=== PATIENT | male | born 1975 | race Caucasian/White ===

== ENCOUNTER 2016-10-23 15:48 | Emergency (ER) | payer SELFPAY ==
[~2016-10-23] VITALS: Ht 170.2 cm; Wt 90.5 kg
[2016-10-23 15:50] VITALS: BP 189/100; PULSE 114; RESP 20; TEMP 98.7; O2SAT 97
--- NOTE | 2016-10-23 15:57 | PD ---
Physical Exam Date Seen by Provider: Oct 23, 2016 Time Seen by Provider: 15:55 Narrative 41 yo male here for left leg swelling. Going on x 3 days. Mild pain to the left leg. 03/12. No injury. No bites or discoloration. Vitals are stable in triage. Awaiting bed placement. Data Data Last Documented VS Vital Signs Date Time Temp Pulse Resp B/P (MAP) Pulse Ox O2 Delivery O2 Flow Rate FiO2 10/23/16 15:50 98.7 114 20 189/100 (129) [address] [facility] Medical Record Reviewed: Yes Supervised Visit with EMMA: No Deangelo Sands Oct 23, 2016 15:57
--- NOTE | 2016-10-23 17:16 | PD ---
HPI Chief Complaint: Edema Time Seen by Provider: 17:10 Travel History International Travel<30 days: No Contact w/Intl Traveler<30days: No Traveled to known affect area: No History of Present Illness HPI 41-year-old male presents emergency Department with complaint of swelling to his left ankle and lower leg 3 days. Denies injury. Psychiatric the pain and cramping and is left calf last night that has subsided. The swelling to his left lower leg was worse the first day and has gone down significantly. Denies paresthesias, loss of sensation, decreased range of motion, decreased strength to the affected extremity. Denies fever, vomiting. Denies chest pain, shortness of breath. Denies history of DVT or PE. Has not taken any medications or tried any treatments to alleviate his symptoms. Symptoms are mild in severity. No known allergies. Has no other medical complaints. No other modifying factors or associated signs and symptoms. PFSH Social History Tobacco Use: No Allergies-Medications (Allergen,Severity, Reaction): Coded Allergies: No Known Allergies (Unverified , 10/23/16) Reported Meds & Prescriptions Reported Meds & Active Scripts Active Deltasone (Prednisone) 20 Mg Tab 20 Mg PO TID Indomethacin 50 Mg Cap 50 Mg PO TID Take with food, milk, or antacids to decrease stomach adverse effects. Review of Systems Except as stated in HPI: all other systems reviewed are Neg Physical Exam Narrative GENERAL: Well-nourished, well-developed male patient, in no acute distress SKIN: Warm and dry. HEAD: Atraumatic. Normocephalic. EYES: Pupils equal and round. No scleral icterus. No injection or drainage. ENT: Mucosa pink and moist. Airway patent. NECK: Trachea midline. CARDIOVASCULAR: Regular rate. RESPIRATORY: No accessory muscle use. GASTROINTESTINAL: Rounded. MUSCULOSKELETAL: Left lower extremity supple and non-tense with 2+ pedal pulse and sensory intact without erythema. Left lower leg and ankle with pitting edema. No obvious deformities. No clubbing. No cyanosis. No edema. NEUROLOGICAL: Awake and alert. Oriented 3. No obvious cranial nerve deficits. Motor grossly within normal limits. Normal speech. PSYCHIATRIC: Appropriate mood and affect; insight and judgment normal. Data Data Last Documented VS Vital Signs Date Time Temp Pulse Resp B/P (MAP) Pulse Ox O2 Delivery O2 Flow Rate FiO2 10/23/16 19:37 10/23/16 15:50 98.7 114 20 97 Room Air Orders Orders Us Leg Venous Doppler (10/23/16 ) Ankle, Complete ([id number]) (10/23/16 17:09) MDM Medical Decision Making Medical Screen Exam Complete: Yes Emergency Medical Condition: Yes Medical Record Reviewed: Yes Differential Diagnosis Superficial thrombosis, deep vein thrombosis, nonspecific leg edema Narrative Course 41-year-old male with left ankle and lower leg pitting edema 3 days. Denies injury. Denies chest pain, shortness breath. Denies history of DVT or PE. I will x-ray the left ankle and ultrasound the left leg to rule out acute process and DVT. 1845: Left ankle x-ray with no acute findings. 1899: Report given to oncoming provider at change of shift. See their note for patient disposition. Scripts Prednisone (Deltasone) 20 Mg Tab 20 MG PO TID, #15 TAB 0 Refills Prov: Kiesha Arredondo MD 10/23/16 Indomethacin (Indomethacin) 50 Mg Cap 50 MG PO TID, #30 CAP 0 Refills Take with food, milk, or antacids to decrease stomach adverse effects. Prov: Kiesha Arredondo MD 10/23/16 Olivia Joshi Oct 23, 2016 17:16
--- NOTE | 2016-10-23 17:47 | RADRPT ---
EXAM DATE/TIME: 10/23/2016 17:50 [facility] COMPARISON: No previous studies available for comparison. INDICATIONS : Left ankle pain and swelling. No known trauma. MEDICAL HISTORY : None. SURGICAL HISTORY : None. ENCOUNTER: Initial ACUITY: 2 days PAIN SCORE: 6/10 LOCATION: Left FINDINGS: Three view exam was performed of the left ankle. The bony structures are in normal alignment. No ev idence of fracture, dislocation, or soft tissue swelling. The ankle mortise is intact. No radiopaqu e foreign bodies are seen. Bony mineralization is normal. CONCLUSION: Unremarkable examination of the left ankle. Aneesh Mccann MD on October 23, 2016 at 17:45 Board Certified Radiologist. This report was verified electronically.
--- NOTE | 2016-10-23 19:15 | RADRPT ---
EXAM DATE/TIME: 10/23/2016 18:41 [facility] COMPARISON: No previous studies available for comparison. INDICATIONS : Left leg pain and swelling. MEDICAL HISTORY : Left leg pain for 3 days. Left leg swelling for 3 days. SURGICAL HISTORY : None. ENCOUNTER: Initial ACUITY: 3 days PAIN SCORE: 3/10 LOCATION: Left leg. TECHNIQUE: Venous ultrasound of the leg was performed from the inguinal ligament to the proximal calf. Real-aaron e, color Doppler and spectral tracing, compression and augmentation techniques were used. FINDINGS: There is normal compressibility of the deep venous system from the inguinal region to the proximal ca lf. No echogenic clot is seen in the lumen of the common femoral, femoral, popliteal, and posterior tibial veins. There is a normal response of the venous system to proximal and distal augmentation an d respiration. CONCLUSION: No evidence of DVT. Jamie Landry MD on October 23, 2016 at 19:13 Board Certified Radiologist. This report was verified electronically.
[2016-10-23] MEDS ORDERED: PRED-503 PO (19:32)
[2016-10-23] MEDS ORDERED: INDO50CA PO (19:32)
--- NOTE | 2016-10-23 19:34 | PD ---
Physical Exam Date Seen by Provider: Oct 23, 2016 Time Seen by Provider: 19:32 Data Data Last Documented VS Vital Signs Date Time Temp Pulse Resp B/P (MAP) Pulse Ox O2 Delivery O2 Flow Rate FiO2 10/23/16 15:50 98.7 114 20 189/100 (129) 97 Room Air Orders Orders Us Leg Venous Doppler (10/23/16 ) Ankle, Complete ([id number]) (10/23/16 17:09) MDM Medical Record Reviewed: Yes Supervised Visit with EMMA: No Interpretation(s) Last 24 hours Impressions Ankle X-Ray 10/23/16 1709 Signed Impressions: Service Date/Time: Friday, October 23, 2016 17:50 - CONCLUSION: Unremarkable examination of the left ankle. Aneesh Mccann MD Lower Extremity Ultrasound 10/23/16 0000 Signed Impressions: Service Date/Time: Friday, October 23, 2016 18:41 - CONCLUSION: No evidence of DVT. Jamie Landry MD Differential Diagnosis . Narrative Course The x-ray and ultrasound are negative. Patient's symptoms appear to be more in the ankle when in the calf or lower leg. 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 I suspect this is an inflammatory arthritis even possibly gout. The patient will be given in his own and Indocin. Diagnosis Primary Impression: inflammatory arthritis left ankle Patient Instructions: General Instructions Departure Forms: Tests/Procedures, Work Release Special Instructions: No work 3 days. Additional Instruction: Rest. Elevation. Medications as directed. Limited activity. Follow-up with a medical doctor in one week. Med/Other Pt SpecificInfo: Prescription(s) given Scripts Prednisone (Deltasone) 20 Mg Tab 20 MG PO TID, #15 TAB 0 Refills Prov: Kiesha Arredondo MD 10/23/16 Indomethacin (Indomethacin) 50 Mg Cap 50 MG PO TID, #30 CAP 0 Refills Take with food, milk, or antacids to decrease stomach adverse effects. Prov: Kiesha Arredondo MD 10/23/16 Disposition: 01 DISCHARGE HOME Condition: Stable Theo Arce Oct 23, 2016 19:34
== END 2016-10-23 19:51 | disposition home or self-care (01) ==
LOC: NEPK 15:48
DX: M13.872 Other specified arthritis, left ankle and foot (principal)
CPT/HCPCS: 73610; 93971; 99284

== ENCOUNTER 2017-02-15 16:14 | Observation (INO) | payer SELFPAY ==
[~2017-02-15] VITALS: Ht 170.2 cm; Wt 97.5 kg
[~2017-02-15 16:14] MED LIST: INDO50CA PO; PRED-503 PO
[2017-02-15 16:16] VITALS: BP 228/112; PULSE 112; RESP 18; TEMP 98.7; O2SAT 99
[2017-02-15] MEDS ORDERED: AMLO10TA2 PO (16:38)
[2017-02-15] MEDS ORDERED: SODIUM CHLORIDE 0.9% FLUSH 10 ML FLUSH IVF PRN (16:45)
--- NOTE | 2017-02-15 17:10 | PD ---
HPI Chief Complaint: Eye Problems/Injury Time Seen by Provider: 16:31 Travel History International Travel<30 days: No Contact w/Intl Traveler<30days: No Traveled to known affect area: No History of Present Illness HPI 41-year-old male presents with his boss noting blood to his eye and telling him to get it checked out. He states he's also been having intermittent chest pain and tingling to his left arm. He states he doesn't know if this is related to him being anxious but he has been having this symptom. He denies any weakness, headache, trauma or other concurrent concerns. He states that his blood pressure about a month ago was in the 150s and his doctor refilled his Norvasc 10 mg which usually controls his blood pressure. He states his blood pressure is usually not as elevated as it is right now. Quality is red. Severity is limited to eye. He denies specific modifying factors. PFSH Past Medical History Cardiovascular Problems: Yes (HTN) Diminished Hearing: No Hypertension: Yes Tetanus Vaccination: Unknown ?: Not Past Surgical History Surgical History: No Previous Surgery Social History Alcohol Use: Yes (3 OR 4 TIMES A WEEK) Tobacco Use: No Substance Use: No Allergies-Medications (Allergen,Severity, Reaction): Coded Allergies: No Known Allergies (Unverified Allergy, Unknown, 02/15/17) Reported Meds & Prescriptions Reported Meds & Active Scripts Active Review of Systems Except as stated in HPI: all other systems reviewed are Neg Physical Exam Narrative GENERAL: Well-nourished, well-developed patient. Well-appearing SKIN: Warm and dry. HEAD: Normocephalic and atraumatic. EYES: Right eye shows conjunctival hemorrhage, pupils equal, extraocular movement intact ENT: No nasal drainage noted. NECK: Supple, trachea midline. CARDIOVASCULAR: Regular rate and rhythm RESPIRATORY: Breath sounds equal bilaterally. No accessory muscle use. GASTROINTESTINAL: Abdomen nondistended. EXTREMITIES: No edema. NEUROLOGICAL: Awake and alert. Motor and sensory grossly within normal limits. Normal speech. Data Data Last Documented VS Vital Signs Date Time Temp Pulse Resp B/P (MAP) Pulse Ox O2 Delivery O2 Flow Rate FiO2 02/15/17 16:16 98.7 112 18 228/112 (150) 99 Orders Orders Electrocardiogram (02/15/17 16:44) Ckmb (Isoenzyme) Profile (02/15/17 16:44) Complete Blood Count With Diff (02/15/17 16:44) Comprehensive Metabolic Panel (02/15/17 16:44) Magnesium (Mg) (02/15/17 16:44) Prothrombin Time / Inr (Pt) (02/15/17 16:44) Act Partial Throm Time (Ptt) (02/15/17 16:44) Troponin I (02/15/17 16:44) Chest, Single Ap (02/15/17 16:44) Ecg Monitoring (02/15/17 16:44) Bilateral Bp Monitoring (02/15/17 16:44) Iv Access Insert/Monitor (02/15/17 16:44) Oximetry (02/15/17 16:44) Sodium Chloride 0.9% Flush (Ns Flush) (02/15/17 16:45) Ct Brain W/O Iv Contrast(Rout) (02/15/17 ) Nitroglycerin 2% Oint (Nitroglycerin 2% (02/15/17 17:15) CKMB (02/15/17 16:55) CKMB% (02/15/17 16:55) Aspirin (Aspirin) (02/15/17 18:30) Enalaprilat Inj (Vasotec Inj) (02/15/17 18:30) Admit Order (Ed Use Only) (02/15/17 18:41) Labs Laboratory Tests Test 02/15/17 16:55 White Blood Count 10.2 TH/MM3 Red Blood Count 5.01 MIL/MM3 Hemoglobin 15.7 GM/DL Hematocrit 45.8 % Mean Corpuscular Volume 91.5 FL Mean Corpuscular Hemoglobin 31.4 PG Mean Corpuscular Hemoglobin Concent 34.4 % Red Cell Distribution Width 12.8 % Platelet Count 299 TH/MM3 Mean Platelet Volume 7.3 FL Neutrophils (%) (Auto) 67.2 % Lymphocytes (%) (Auto) 19.0 % Monocytes (%) (Auto) 12.4 % Eosinophils (%) (Auto) 0.8 % Basophils (%) (Auto) 0.6 % Neutrophils # (Auto) 6.8 TH/MM3 Lymphocytes # (Auto) 1.9 TH/MM3 Monocytes # (Auto) 1.3 TH/MM3 Eosinophils # (Auto) 0.1 TH/MM3 Basophils # (Auto) 0.1 TH/MM3 CBC Comment DIFF FINAL Differential Comment Prothrombin Time 10.1 SEC Prothromb Time International Ratio 1.0 RATIO Activated Partial Thromboplast Time 27.9 SEC Blood Urea Nitrogen 9 MG/DL Creatinine 0.98 MG/DL Random Glucose 221 MG/DL Total Protein 7.9 GM/DL Albumin 3.9 GM/DL Calcium Level 9.2 MG/DL Magnesium Level 1.8 MG/DL Alkaline Phosphatase 86 U/L Aspartate Amino Transf (AST/SGOT) 55 U/L Alanine Aminotransferase (ALT/SGPT) 169 U/L Total Bilirubin 0.6 MG/DL Sodium Level 134 MEQ/L Potassium Level 4.0 MEQ/L Chloride Level 100 MEQ/L Carbon Dioxide Level 29.2 MEQ/L Anion Gap 5 MEQ/L Estimat Glomerular Filtration Rate 84 ML/MIN Total Creatine Kinase 231 U/L Creatine Kinase MB 1.3 NG/ML Troponin I LESS THAN 0.02 NG/ML MDM Medical Decision Making Medical Screen Exam Complete: Yes Emergency Medical Condition: Yes Medical Record Reviewed: Yes (past history confirmed) Interpretation(s) CBC & BMP Diagram 02/15/17 16:55 Total Protein 7.9, Albumin 3.9, Calcium Level 9.2, Magnesium Level 1.8, Alkaline Phosphatase 86, Aspartate Amino Transf (AST/SGOT) 55 H, Alanine Aminotransferase (ALT/SGPT) 169 H, Total Bilirubin 0.6 Last 24 hours Impressions Chest X-Ray 02/15/17 1644 Signed Impressions: Service Date/Time: Wednesday, February 15, 2017 16:53 - CONCLUSION: 1. No acute cardiopulmonary disease. Kody Power MD Differential Diagnosis Hypertensive urgency, atypical cardiac, subconjunctival hemorrhage Narrative Course Will check blood work, chest x-ray, EKG and dose with nitroglycerin and reevaluate. Hold aspirin until CT head resulted ED workup shows glucose greater than 200, patient's blood pressure remains elevated, will dose with Vasotec and admit to the hospital for further care Physician Communication Physician Communication dr milligan agrees to admit Diagnosis Primary Impression: Hypertensive urgency Additional Impressions: Chest pain Qualified Codes: R07.9 - Chest pain, unspecified Elevated glucose Admitting Information Admitting Physician Requests: Observation Scripts Diltiazem (Cardizem) 30 Mg Tab 30 MG PO QID for Blood Pressure Management, #120 TAB Prov: Keyonna Mayer 02/16/17 Metoprolol Tartrate (Metoprolol Tartrate) 25 Mg Tab 25 MG PO Q12HR for Blood Pressure Management, #60 TAB Prov: Keyonna Mayer 02/16/17 Amlodipine (Amlodipine) 10 Mg Tab 10 MG PO DAILY for Blood Pressure Management, #30 TAB 0 Refills Prov: Keyonna Mayer 02/16/17 Lashell Pathak MD Feb 15, 2017 17:10
--- NOTE | 2017-02-15 17:11 | RADRPT ---
EXAM DATE/TIME: 02/15/2017 16:53 [facility] COMPARISON: No previous studies available for comparison. INDICATIONS : Chest pain left side. MEDICAL HISTORY : Hypertension. SURGICAL HISTORY : None. ENCOUNTER: Initial ACUITY: 1 day PAIN SCORE: 3/10 LOCATION: Bilateral chest FINDINGS: A single view of the chest demonstrates the lungs to be symmetrically aerated without evidence of mas s, infiltrate or effusion. The cardiomediastinal contours are unremarkable. Osseous structures are intact. CONCLUSION: 1. No acute cardiopulmonary disease. Kody Power MD on February 15, 2017 at 17:09 Board Certified Radiologist. This report was verified electronically.
[2017-02-15] MEDS ORDERED: NITROGLYCERIN 2% OINT 1 GM PACKET TOP ONE (17:15)
[2017-02-15 17:22] LABS: AUTOMATED NEUTROPHIL # 6.8 TH/MM3 (1.8-7.7); BASOPHIL # 0.1 TH/MM3 (0-0.2); BASOPHIL % 0.6 % (0.0-2.0); EOSINOPHIL # 0.1 TH/MM3 (0-0.4); EOSINOPHIL % 0.8 % (0.0-4.0); HEMATOCRIT 45.8 % (39.0-51.0); HEMO FLAGS DIFF FINAL; LYMPHOCYTE # 1.9 TH/MM3 (1.0-4.8); MEAN CELL VOLUME 91.5 FL (80.0-100.0); MEAN CORPUSCULAR HEMOGLOBIN 31.4 PG (27.0-34.0); MEAN CORPUSCULAR HGB CONC 34.4 % (32.0-36.0); MONO % 12.4 % (0.0-8.0); NEUT % 67.2 % (16.0-70.0); PLATELET COUNT 299 TH/MM3 (150-450); RED BLOOD COUNT 5.01 MIL/MM3 (4.50-5.90); RED CELL DISTRIBUTION WIDTH 12.8 % (11.6-17.2); WHITE BLOOD COUNT 10.2 TH/MM3 (4.0-11.0)
[2017-02-15 17:46] LABS: ALT (GPT) 169 U/L (12-78); ANION GAP 5 MEQ/L (5-15); AST (GOT) 55 U/L (15-37); BICARBONATE 29.2 MEQ/L (21.0-32.0); BLOOD UREA NITROGEN 9 MG/DL (7-18); CHLORIDE 100 MEQ/L (98-107); GLOMERULAR FILTRATION RATE 84 ML/MIN (>89); MAGNESIUM 1.8 MG/DL (1.5-2.5); SODIUM (NA) 134 MEQ/L (136-145)
[2017-02-15 17:50] LABS: ALKALINE PHOSPHATASE 86 U/L (45-117); CREATINE KINASE 231 U/L (39-308); TOTAL BILIRUBIN ADULT 0.6 MG/DL (0.2-1.0)
[2017-02-15 18:01] LABS: APTT (PATIENT) 27.9 SEC (24.3-30.1); PROTHROMBIN TIME - PATIENT 10.1 SEC (9.8-11.6)
[2017-02-15 18:02] LABS: CKMB 1.3 NG/ML (0.5-3.6)
--- NOTE | 2017-02-15 18:16 | RADRPT ---
EXAM DATE/TIME: 02/15/2017 18:06 [facility] COMPARISON: No previous studies available for comparison. INDICATIONS : Headache. Hypertension. RADIATION DOSE: 53.07 CTDIvol (mGy) MEDICAL HISTORY : Cardiovascular disease. Hypertension. SURGICAL HISTORY : None. ENCOUNTER: Initial ACUITY: 1 day PAIN SCALE: 5/10 LOCATION: cranial TECHNIQUE: Multiple contiguous axial images were obtained of the head. Using automated exposure control and adj ustment of the mA and/or kV according to patient size, radiation dose was kept as low as reasonably a chievable to obtain optimal diagnostic quality images. DICOM format image data is available electro nically for review and comparison. FINDINGS: CEREBRUM: The ventricles are normal for age. No evidence of midline shift, mass lesion, hemorrhage or acute in farction. No extra-axial fluid collections are seen. POSTERIOR FOSSA: The cerebellum and brainstem are intact. The 4th ventricle is midline. The cerebellopontine angle i s unremarkable. EXTRACRANIAL: The visualized portion of the orbits is intact. Right middle turbinate shellie bullosa. SKULL: The calvaria is intact. No evidence of skull fracture. CONCLUSION: 1. No acute intracranial abnormality. Kody Power MD on February 15, 2017 at 18:13 Board Certified Radiologist. This report was verified electronically.
[2017-02-15] MEDS ORDERED: ASPIRIN 325 MG TAB PO ONE (18:30)
[2017-02-15] MEDS ORDERED: ENALAPRILAT 1.25 MG/ML VIAL IV PUSH ONE (18:30)
[2017-02-15 18:43] VITALS: BP 188/99; PULSE 94; RESP 16; O2SAT 97
[2017-02-15] MEDS ORDERED: NALOXONE HCL 0.4 MG/ML AMP IV PUSH PRN (18:45)
[2017-02-15] MEDS ORDERED: SENNOSIDES 8.6 MG TAB PO PRN (18:45)
[2017-02-15] MEDS ORDERED: MAGNESIUM HYDROXIDE SUSP 30 ML CUP PO PRN (18:45)
[2017-02-15] MEDS ORDERED: LACTULOSE SYRUP 20 GM/30 ML CUP PO PRN (18:45)
[2017-02-15] MEDS ORDERED: ACETAMINOPHEN 325 MG TAB PO PRN (18:45)
[2017-02-15] MEDS ORDERED: BISACODYL 10 MG SUPP RECTAL PRN (18:45)
[2017-02-15] MEDS ORDERED: hydrALAZINE HCL 10 MG TAB PO PRN (18:45)
[2017-02-15] MEDS ORDERED: SODIUM CHLORIDE 0.9% FLUSH 10 ML FLUSH IV FLUSH PRN (18:45)
[2017-02-15] MEDS ORDERED: ENALAPRILAT 2.5 MG/2 ML VIAL IV PUSH PRN (18:45)
--- NOTE | 2017-02-15 19:12 | HHI.HP ---
[facility] Raymond Whitlock MD Admission Diagnosis chest pain, hypertensive urgency, elevated glucose Diagnoses: (1) Chest pain (2) HTN (hypertension) Diagnosis: Principal (3) Hyperglycemia Diagnosis: Principal Travel History International Travel<30 Days: No Contact w/Intl Traveler <30 Da: No Traveled to Known Affected Are: No History of Present Illness This is a 41-year-old male with a PMH of HTN who presented to ER with complaints of right eye redness starting earlier this afternoon. Also notes c/ o intermittent chest pain for 2-3 days which he believes is associated w/ anxiety. No h/o CAD. Denies fever, chills, cough or sick contacts. On arrival , BP 228/112, HR 112, O2 sat 99% on RA, Afebrile. CBC unremarkable. Chemistry is unremarkable except for GFR. BS 221, no previous history of DM. LFTs mildly elevated. Troponin negative. Her 1.0. CXR with no acute findings. CT Head negative. States he is on Norvasc at home, reports compliance w/ medications. S/p Vasotec in ER w/ improvement. Review of Systems Except as stated in HPI: all other systems reviewed are Neg ROS: 14 point review of systems otherwise negative. Past Family Social History Past Medical History PMH: HTN Past Surgical History PAST SURGICAL HISTORY: None Allergies: Coded Allergies: No Known Allergies (Unverified Allergy, Unknown, 02/15/17) Family History PAST FAMILY HISTORY: Reviewed. No h/o DM or CAD Social History PAST SOCIAL HISTORY: Occasional alcohol. Negative for tobacco or drugs. Physical Exam Vital Signs Vital Signs Date Time Temp Pulse Resp B/P (MAP) Pulse Ox O2 Delivery O2 Flow Rate FiO2 02/15/17 18:43 94 16 188/99 (128) 97 Room Air 02/15/17 16:16 98.7 112 18 228/112 (150) 99 Physical Exam PE: GENERAL: Middle-aged male in no acute distress. HEENT: PERRLA, EOMI. Right conjunctival hemorrhage. No scleral icterus or conjunctival pallor. No lid lag or facial droop. CARDIOVASCULAR: Regular rate and rhythm. No obvious murmurs to auscultation. No chest tenderness to palpation. RESPIRATORY: No obvious rhonchi or wheezing. Clear to auscultation. Breath sounds equal bilaterally. GASTROINTESTINAL: Abdomen soft, non-tender, nondistended. BS normal. MUSCULOSKELETAL: Extremities without clubbing, cyanosis, or edema. No obvious deformities. NEUROLOGICAL: Awake, alert and oriented x4. No focal neurologic deficits. Moving both upper and lower extremities spontaneously. Laboratory Laboratory Tests Test 02/15/17 16:55 White Blood Count 10.2 Red Blood Count 5.01 Hemoglobin 15.7 Hematocrit 45.8 Mean Corpuscular Volume 91.5 Mean Corpuscular Hemoglobin 31.4 Mean Corpuscular Hemoglobin Concent 34.4 Red Cell Distribution Width 12.8 Platelet Count 299 Mean Platelet Volume 7.3 Neutrophils (%) (Auto) 67.2 Lymphocytes (%) (Auto) 19.0 Monocytes (%) (Auto) 12.4 Eosinophils (%) (Auto) 0.8 Basophils (%) (Auto) 0.6 Neutrophils # (Auto) 6.8 Lymphocytes # (Auto) 1.9 Monocytes # (Auto) 1.3 Eosinophils # (Auto) 0.1 Basophils # (Auto) 0.1 CBC Comment DIFF FINAL Differential Comment Prothrombin Time 10.1 Prothromb Time International Ratio 1.0 Activated Partial Thromboplast Time 27.9 Blood Urea Nitrogen 9 Creatinine 0.98 Random Glucose 221 Total Protein 7.9 Albumin 3.9 Calcium Level 9.2 Magnesium Level 1.8 Alkaline Phosphatase 86 Aspartate Amino Transf (AST/SGOT) 55 Alanine Aminotransferase (ALT/SGPT) 169 Total Bilirubin 0.6 Sodium Level 134 Potassium Level 4.0 Chloride Level 100 Carbon Dioxide Level 29.2 Anion Gap 5 Estimat Glomerular Filtration Rate 84 Total Creatine Kinase 231 Creatine Kinase MB 1.3 Troponin I LESS THAN 0.02 Result Diagram: 02/15/17 1655 02/15/175 Caprini VTE Risk Assessment Caprini VTE Risk Assessment: No/Low Risk (score <= 1) Caprini Risk Assessment Model Point Value = 1 Point Value = 2 Point Value = 3 Point Value = 5 Age 41-60 Minor surgery BMI > 25 kg/m2 Swollen legs Varicose veins or History of unexplained or recurrent spontaneous Oral contraceptives or hormone replacement Sepsis (< 1 month) Serious lung disease, including pneumonia (< 1 month) Abnormal pulmonary function Acute myocardial infarction Congestive heart failure (< 1 month) History of inflammatory bowel disease Medical patient at bed rest Age 61-74 Arthroscopic surgery Major open surgery (> 45 min) Laparoscopic surgery (> 45 min) Malignancy Confined to bed (> 72 hours) Immobilizing plaster cast Central venous access Age >= 75 History of VTE Family history of VTE Factor V Leiden Prothrombin [id number] Lupus anticoagulant Anticardiolipin antibodies Elevated serum homocysteine Heparin-induced thrombocytopenia Other congenital or acquired thrombophilia Stroke (< 1 month) Elective arthroplasty Hip, pelvis, or leg fracture Acute spinal cord injury (< 1 month) Prophylaxis Regimen Total Risk Factor Score Risk Level Prophylaxis Regimen 0-1 Low Early ambulation 2 Moderate Order ONE of the following: *Sequential Compression Device (SCD) *Heparin 5000 units SQ BID 3-4 Higher Order ONE of the following medications: *Heparin 5000 units SQ TID *Enoxaparin/Lovenox 40 mg SQ daily (WT < 150 kg, CrCl > 30 mL/min) *Enoxaparin/Lovenox 30 mg SQ daily (WT < 150 kg, CrCl > 10-29 mL/min) *Enoxaparin/Lovenox 30 mg SQ BID (WT < 150 kg, CrCl > 30 mL/min) AND/OR *Sequential Compression Device (SCD) 5 or more Highest Order ONE of the following medications: *Heparin 5000 units SQ TID (Preferred with Epidurals) *Enoxaparin/Lovenox 40 mg SQ daily (WT < 150 kg, CrCl > 30 mL/min) *Enoxaparin/Lovenox 30 mg SQ daily (WT < 150 kg, CrCl > 10-29 mL/min) *Enoxaparin/Lovenox 30 mg SQ BID (WT < 150 kg, CrCl > 30 mL/min) AND *Sequential Compression Device (SCD) Assessment and Plan Problem List: (1) Chest pain ICD Code: R07.9 - Chest pain, unspecified Status: Acute (2) HTN (hypertension) ICD Code: I10 - Essential (primary) hypertension (3) Hyperglycemia ICD Code: R73.9 - Hyperglycemia, unspecified Assessment and Plan A/P: 1. Chest Pain: intermittent c/o chest pain, reports related to anxiety. No h/ o CAD, low cardiac risk. Initial trop negative, EKG w/ no acute ischemia. Admit for Observation, telemetry, check serial cardiac enzymes, ASA, Statin, Metoprolol, Morphine prn. 2. HTN: Uncontrolled. On Norvasc 10mg qd, reports compliance w/ meds. BP on arrival 228/112, HR 112, s/p Vasotec in ER w/ improvement, BP currently 162/91, HR 100. Will monitor, resume home medications. Add Metoprolol. 3. Hyperglycemia: BS 221. No h/o DM. Check Hgb A1c, start Sliding Scale w/ Accu-Cheks. Diabetic Education 4. DVT Prophylaxis: SCD/Teds 5. Social work for d/c planning as needed. 6. Case discussed w/ ER physician at length. Problem Qualifiers (1) Chest pain: Qualified Codes: R07.9 - Chest pain, unspecified Danette Fink MD Feb 15, 2017 19:12
[2017-02-15] MEDS ORDERED: DEXTROSE 50% IN WATER 50 ML VIAL(D50) IV PUSH PRN (19:15)
[2017-02-15] MEDS ORDERED: GLUCAGON 1 MG/ML VIAL OTHER PRN (19:15)
[2017-02-15 19:23] VITALS: BP 162/91; PULSE 100; RESP 18; O2SAT 97
[2017-02-15] MEDS ORDERED: ENOXAPARIN SODIUM 40 MG/0.4 ML SYRINGE SQ SCH (20:00)
[2017-02-15] MEDS ORDERED: ATOR20TA15 PO (20:49)
[2017-02-15] MEDS ORDERED: ATOR10TA15 PO (20:49)
[2017-02-15 20:58] VITALS: PULSE 95
[2017-02-15] MEDS: INSULIN ASPART SUPPLEMENTAL SCALE SQ SCH (21:00)
--- NOTE | 2017-02-15 21:26 | EKG ---
Date Performed: 02/15/2017 Time Performed: 20:20:44 PTAGE: 41 years EKG: Sinus rhythm , PROBABLE LEFT ARM RIGHT ARM LEAD REVERSAL, POSSIBLE LEFT ATRIAL ENLARGEMENT, LEFT POSTERIOR FASCICU LAR BLOCK, POSSIBLE INFERIOR MYOCARDIAL INFARCTION, ABNORMAL ECG PREVIOUS TRACING : 02/15/2017 17.23 No significant change from previous tracing noted. DOCTOR: Cameron Ralph Interpretating Date/Time 02/15/2017 21:25:18
[2017-02-15 21:27] VITALS: O2SAT 97
--- NOTE | 2017-02-15 21:33 | EKG ---
Date Performed: 02/15/2017 Time Performed: 17:23:13 PTAGE: 41 years EKG: Sinus rhythm NONSPECIFIC T-WAVE ABNORMALITY BORDERLINE ECG NO PREVIOUS TRACING DOCTOR: Cameron Ralph Interpretating Date/Time 02/15/2017 21:32:02
[2017-02-16] VITALS (7 sets, daily range): BP systolic 138–169; BP diastolic 80–100; PULSE 76–100; RESP 20–22; TEMP 97.9–99; O2SAT 89–97
[2017-02-16] MEDS: SODIUM CHLORIDE 0.9% FLUSH 10 ML FLUSH IV FLUSH SCH ×2 (01:43→09:00)
[2017-02-16] MEDS: METOPROLOL TARTRATE 25 MG TAB PO SCH ×2 (01:44→08:30)
[2017-02-16] MEDS: DOCUSATE SODIUM 50 MG/SENNA 8.6 MG TAB PO SCH ×2 (01:44→08:27)
[2017-02-16] MEDS: DILTIAZEM HCL 30 MG TAB PO SCH ×3 (01:44→13:00)
[2017-02-16 02:16] LABS: AUTOMATED NEUTROPHIL # 6.6 TH/MM3 (1.8-7.7); BASOPHIL # 0.1 TH/MM3 (0-0.2); BASOPHIL % 1.1 % (0.0-2.0); EOSINOPHIL # 0.1 TH/MM3 (0-0.4); EOSINOPHIL % 0.9 % (0.0-4.0); HEMATOCRIT 44.5 % (39.0-51.0); HEMO FLAGS DIFF FINAL; LYMPH % 26.1 % (9.0-44.0); LYMPHOCYTE # 2.9 TH/MM3 (1.0-4.8); MEAN CELL VOLUME 91.4 FL (80.0-100.0); MEAN CORPUSCULAR HEMOGLOBIN 31.9 PG (27.0-34.0); MEAN CORPUSCULAR HGB CONC 34.9 % (32.0-36.0); MONO % 11.7 % (0.0-8.0); NEUT % 60.2 % (16.0-70.0); PLATELET COUNT 273 TH/MM3 (150-450); RED BLOOD COUNT 4.87 MIL/MM3 (4.50-5.90); RED CELL DISTRIBUTION WIDTH 12.7 % (11.6-17.2)
[2017-02-16 02:34] LABS: ANION GAP 6 MEQ/L (5-15); BICARBONATE 30.8 MEQ/L (21.0-32.0); BLOOD UREA NITROGEN 10 MG/DL (7-18); CHLORIDE 99 MEQ/L (98-107); GLOMERULAR FILTRATION RATE 93 ML/MIN (>89); POTASSIUM 3.6 MEQ/L (3.5-5.1); SODIUM (NA) 136 MEQ/L (136-145)
[2017-02-16] MEDS: INSULIN ASPART SUPPLEMENTAL SCALE SQ SCH ×2 (08:00→12:00)
[2017-02-16 08:51] LABS: INDIRECT BILIRUBIN 0.4 MG/DL (0.0-0.8); TOTAL BILIRUBIN ADULT 0.6 MG/DL (0.2-1.0)
[2017-02-16] MEDS ORDERED: ASPIRIN EC 81 MG TABEC PO SCH (09:00)
[2017-02-16] MEDS ORDERED: predniSONE 20 MG TAB PO SCH (09:00)
[2017-02-16] MEDS ORDERED: PNEUMOCOCCAL POLYVALENT INJ 25 MCG/0.5 ML SYR IM ONE (09:00)
[2017-02-16] MEDS ORDERED: INDOMETHACIN 50 MG CAP PO SCH (09:00)
[2017-02-16] MEDS ORDERED: PRAVASTATIN SOD 40 MG TAB PO SCH (09:00)
--- NOTE | 2017-02-16 10:43 | EKG ---
Date Performed: 02/15/2017 Time Performed: 23:54:18 PTAGE: 41 years EKG: Sinus rhythm NONSPECIFIC T-WAVE ABNORMALITY BORDERLINE ECG NO PREVIOUS TRACING DOCTOR: Cameron Ralph Interpretating Date/Time 02/16/2017 10:41:35
[2017-02-16 10:58] LABS: HEMOGLOBIN A1a 1.3 %; HEMOGLOBIN A1b 0.8 %; HEMOGLOBIN Ao 81.4 %; HEMOGLOBIN F 2.1 %; HEMOGLOBIN LA1C 2.2 %; HEMOGLOBIN P3 3.9 %
[2017-02-16] MEDS ORDERED: DILT31TA PO (12:49)
[2017-02-16] MEDS ORDERED: AMLO10TA2 PO (12:49)
[2017-02-16] MEDS ORDERED: METO25TA3 PO (12:49)
--- NOTE | 2017-02-16 12:55 | HHI.DCPOC ---
Discharge Care Plan Diagnosis: (1) Diabetes (2) Hyperglycemia (3) HTN (hypertension) (4) Conjunctival hemorrhage of right eye (5) Hypertensive urgency (6) Transaminitis (7) Chest pain Goals to Promote Your Health * To prevent worsening of your condition and complications * To maintain your health at the optimal level Directions to Meet Your Goals Recommend keeping a blood pressure log to take with you to your next PCP appointment HgbA1c 7.5, Diabetes, new diagnosis, recommend lifestyle modification, decrease or stop drinking alcohol, regular exercise program. Follow up with PCP. Hold home statin therapy for now due to elevated liver function tests Take your medications as prescribed Follow your dietary instruction Follow activity as directed Keep your appointments as scheduled Take your immunizations and boosters as scheduled If your symptoms worsen call your PCP, if no PCP go to Urgent Care Center or Emergency Room Smoking is Dangerous to Your Health. Avoid second hand smoke Call the 24-hour hour crisis hotline for domestic abuse at Keyonna Mayer Feb 16, 2017 12:55
--- NOTE | 2017-02-16 12:56 | HHI.PR ---
Subjective Remarks Follow up on patient with hypertensive urgency. Patient seen and examined. Patient is improved. Blood pressure better controlled. Patient's currently chest pain free. Patient reports long history of sharp chest pain with anxiety and he has been more anxious as of late. He denies any acute medical complaints. He is a daily drinker. Tolerating diet without any difficulties. He denies any vision disturbances. Objective Vitals Vital Signs Date Time Temp Pulse Resp B/P (MAP) Pulse Ox O2 Delivery O2 Flow Rate FiO2 02/16/17 12:14 98.8 80 20 150/80 (103) 97 02/16/17 08:26 97.9 89 20 160/80 (106) 89 02/16/17 05:10 138/88 (105) 02/16/17 04:06 76 02/16/17 04:00 99.0 78 22 168/100 (122) 97 02/16/17 00:06 85 02/16/17 00:00 98.6 100 20 169/100 (123) 97 02/15/17 21:27 97 02/15/17 20:58 95 02/15/17 20:56 02/15/17 19:23 100 18 162/91 (114) 97 Room Air 02/15/17 18:43 94 16 188/99 (128) 97 Room Air 02/15/17 16:16 98.7 112 18 228/112 (150) 99 I/O 02/15/17 02/15/17 02/15/17 02/16/17 02/16/17 02/16/17 07:00 15:00 23:00 07:00 15:00 23:00 Intake Total 250 ml Balance 250 ml Intake Oral 250 ml Result Diagram: 02/16/17 0205 02/16/17 0205 Imaging Last Impressions Chest X-Ray 02/15/17 1644 Signed Impressions: Service Date/Time: Wednesday, February 15, 2017 16:53 - CONCLUSION: 1. No acute cardiopulmonary disease. Kody Power MD Head CT 02/15/17 0000 Signed Impressions: Service Date/Time: Wednesday, February 15, 2017 18:06 - CONCLUSION: 1. No acute intracranial abnormality. Kody Power MD Objective Remarks GENERAL: Well-nourished, well-developed patient in NAD. Awake and alert. Witnessed ambulating in the unit. Appears comfortable. SKIN: Warm and dry. No rash. HEAD: Normocephalic. Atraumatic. EYES: Pupils equal and round. Right conjunctival hemorrhage noted. ENT: No nasal bleeding or discharge. Mucous membranes pink and moist. NECK: Trachea midline. CARDIOVASCULAR: Regular rate and rhythm. S1, S2 noted. No murmur appreciated. RESPIRATORY: Nonlabored. Clear to auscultation. Breath sounds equal bilaterally. GASTROINTESTINAL: Abdomen soft, non-tender, nondistended. Normoactive bowel sounds x4. MUSCULOSKELETAL: No obvious deformities. Extremities without clubbing, cyanosis , or edema. NEUROLOGICAL: Awake and alert. Able to move all extremities spontaneously. Motor and sensory function grossly intact. Normal speech. PSYCHIATRIC: Appropriate mood and affect; insight and judgment normal. Medications and IVs Current Medications Medications (Trade) Dose Ordered Sig/Johnna Route Start Time Stop Time Status Last Admin (NS Flush) 2 ml UNSCH PRN IV FLUSH 02/15/17 18:45 (NS Flush) 2 ml BID IV FLUSH 02/15/17 21:00 02/16/17 09:00 (Tylenol) 650 mg Q4H PRN PO 02/15/17 18:45 (Lovenox Inj) 40 mg Q24H SQ 02/15/17 20:00 02/15/17 20:30 (Narcan Inj) 0.4 mg UNSCH PRN IV PUSH 02/15/17 18:45 (Bridget-Colace) 1 tab BID PO 02/15/17 21:00 02/16/17 01:44 (Milk Of Magnesia Liq) 30 ml Q12H PRN PO 02/15/17 18:45 (Senokot) 17.2 mg Q12H PRN PO 02/15/17 18:45 (Dulcolax Supp) 10 mg DAILY PRN RECTAL 02/15/17 18:45 (Lactulose Liq) 30 ml DAILY PRN PO 02/15/17 18:45 (Vasotec Inj) 2.5 mg Q6H PRN IV PUSH 02/15/17 18:45 02/16/17 04:10 (Apresoline) 10 mg Q6HR PRN PO 02/15/17 18:45 02/16/17 08:29 (Norvasc) 10 mg DAILY PO 02/16/17 09:00 02/16/17 08:30 (Cardizem) 30 mg QID PO 02/15/17 21:00 02/16/17 08:32 (Lopressor) 25 mg Q12HR PO 02/15/17 21:00 02/16/17 08:30 (Ecotrin Ec) 81 mg DAILY PO 02/16/17 09:00 02/16/17 08:29 (Pravachol) 40 mg DAILY PO 02/16/17 09:00 Future Hold 02/16/17 08:29 (D50w (Vial) Inj) 50 ml UNSCH PRN IV PUSH 02/15/17 19:15 (Glucagon Inj) 1 mg UNSCH PRN OTHER 02/15/17 19:15 (NovoLOG SUPPLEMENTAL SCALE) 1 ACHS SLIDING SCALE SQ 02/15/17 21:00 A/P Problem List: (1) Chest pain ICD Code: R07.9 - Chest pain, unspecified Status: Acute (2) HTN (hypertension) ICD Code: I10 - Essential (primary) hypertension (3) Hyperglycemia ICD Code: R73.9 - Hyperglycemia, unspecified Assessment and Plan Hypertensive urgency - Patient reports compliance with antihypertensive Norvasc 10 mg daily. BP 228/112 on arrival. Started on Cardizem 30 mg 4 times a day and Lopressor 25 mg by mouth twice a day. BP improved. We'll continue medications at discharge. Advised patient on close follow-up with his per my care physician and keeping a BP log to take with him to his next appointment. Chest pain - Patient is currently chest pain-free - Ruled out for ACS with negative troponins 3 and EKG showing no ischemic changes - Patient reports long history of intermittent sharp chest pain with increased anxiety and reports he's been more anxious - TSH 5.990 Transaminitis - Patient admits he is a daily drinker. Suspect secondary to alcohol use and /or fatty liver disease. Asymptomatic, patient tolerating diet, no N/V or abdominal pain. - discussed findings with patient. Discontinuation of home statin therapy for now. Do not resume until cleared by PCP. Patient stated understanding. DM, new diagnosis - No reported hx of diabetes. HgbA1c 7.5. Discussed with patient. Recommended dietary changes, lifestyle modification. Close follow up with PCP to monitor sugars and determine if treatment initiation warranted. Discharge patient to home Condition on discharge: Improved Heart healthy Diet as tolerated Ad Gillian activity Rx written: Cardizem, Norvasc, Lopressor. Hold statin. Follow-up with primary care physician Attending Statement The exam, history, and the medical decision-making described in the above note were completed with the assistance of the mid-level provider. I reviewed and agree with the findings presented. I attest that I had a [id number] encounter with the patient on the same day, and personally performed and documented my assessment and findings in the medical record. Patient has no complaints. Deny any eye pain or visual changes. Patient admits to getting very anxious in which he gets chest pain. He stated that the chest pain became with the same exact chest pain that he gets with anxiety. Chest pain lasting for couple seconds and described as sharp, nonradiating. He did that controlling anxiety house with the chest pain. patient feels like he is back to his baseline. gen NAD CV rrr. no r/m/g. resp CTA B/L Abd soft NDNT A/P Hypertensive urgency Atypical chest pain Anxiety Blood pressure now better controlled and he is asymptomatic. Patient medically stable. Cardiac enzymes negative. Very unlikely ACS. Patient medical stable to be discharged to home. Patient told to return to the hospital if symptoms recur for any other concerns. Problem Qualifiers (1) Chest pain: Qualified Codes: R07.9 - Chest pain, unspecified Keyonna Mayer Feb 16, 2017 12:56 Yesica Goldberg MD Feb 16, 2017 16:47
== END 2017-02-16 15:34 | disposition home or self-care (01) ==
LOC: NEPC 16:14 → NEDA 18:42 → NEPGCP 20:34
PROVIDERS: ADMIT Family Medicine; ATTEND Family Medicine
DX: E11.65 Type 2 diabetes mellitus with hyperglycemia (principal); I10 Essential (primary) hypertension; H11.31 Conjunctival hemorrhage, right eye; I16.0 Hypertensive urgency; F41.9 Anxiety disorder, unspecified; R74.0 Nonspecific elevation of levels of transaminase and lactic acid dehydrogenase [LDH]; R94.31 Abnormal electrocardiogram [ECG] [EKG]; Z79.899 Other long term (current) drug therapy; Z23 Encounter for immunization
CPT/HCPCS: 70450; 71010; 80048; 80053; 80076; 82550; 82552; 82948; 83036; 83735; 84443; 84484; 85025; 85610; 85730; 90732; 93005; 96372; 96374; 96376; 97161; 99285; G0378; G8987; G8988; J1650

== ENCOUNTER 2017-04-09 21:11 | Observation (INO) | payer SELFPAY ==
[~2017-04-09] VITALS: Ht 170.2 cm; Wt 93.0 kg
[~2017-04-09 21:11] MED LIST changes: +AMLO10TA2 PO; +DILT31TA PO; -INDO50CA PO; +METO25TA3 PO; -PRED-503 PO
[2017-04-09 21:22] VITALS: BP 203/102; PULSE 102; RESP 20; O2SAT 97
[2017-04-09 21:26] VITALS: BP 169/89; PULSE 101; RESP 18; O2SAT 99
[2017-04-09] MEDS ORDERED: SODIUM CHLORIDE 0.9% FLUSH 10 ML FLUSH IVF PRN (21:30)
[2017-04-09] MEDS ORDERED: SODIUM CHLORID 0.9% 500 ML INJ 500 ML IV ONE (21:30)
[2017-04-09] MEDS: NITROGLYCERIN 0.4 MG SL 25 TABS/BTL SL SCH ×2 (21:35→21:38)
--- NOTE | 2017-04-09 21:35 | PD ---
HPI Chief Complaint: Chest Pain Time Seen by Provider: 21:21 Travel History International Travel<30 days: No Contact w/Intl Traveler<30days: No Traveled to known affect area: No History of Present Illness HPI 42-year-old male presents to the ED via EMS for evaluation of approximately 8 hour history of intermittent left-sided chest pain that radiates into the arm. Onset at rest. Patient states that he is noted his blood pressures been elevated throughout the course of the day. He endorses intermittent diaphoresis throughout the course of the day. He denies headache, dizziness, vision changes, unilateral weakness, speech difficulties, nausea, vomiting. Dorsal familial history of [place]. Endorses compliance with his daily amlodipine. Denies illicit drug use, alcohol use, cigarette smoking. Per EMS report the patient received aspirin, single dose of nitroglycerin sublingual en route. PFSH Past Medical History Asthma: Yes Blood Disorders: No Anxiety: Yes (pt takes vistril in past hx) Depression: Yes Heart Rhythm Problems: Yes (pt feels heart rate increase no md diagnosis) Cancer: No Cardiovascular Problems: Yes (HTN / high cholestrol/ chest pain freq.) High Cholesterol: Yes Chemotherapy: No Chest Pain: Yes Congestive Heart Failure: No COPD: No Diabetes: Yes (bgm's this admission) Diminished Hearing: No Endocrine: Yes Genitourinary: No Hypertension: Yes Immune Disorder: No Musculoskeletal: Yes (l collar bone fx at 5 yrs old) Neurologic: No Psychiatric: Yes (anixety) Reproductive: No Respiratory: Yes (borderline asthma) Radiation Therapy: No Sleep Apnea: No Thyroid Disease: No Social History Alcohol Use: Yes (3 OR 4 TIMES A WEEK) Tobacco Use: No Substance Use: No Allergies-Medications (Allergen,Severity, Reaction): Coded Allergies: No Known Allergies (Unverified Allergy, Unknown, 04/09/17) Reported Meds & Prescriptions Reported Meds & Active Scripts Active Metoprolol Tartrate 25 Mg Tab 25 Mg PO Q12HR Reported Amlodipine (Amlodipine Besylate) 5 Mg Tab 5 Mg PO DAILY Review of Systems Except as stated in HPI: all other systems reviewed are Neg Physical Exam Narrative GENERAL: Well-nourished, well-developed anxious white male in no acute distress. SKIN: Focused skin assessment warm/, diaphoretic. HEAD: Normocephalic. EYES: No scleral icterus. No injection or drainage. NECK: Supple, trachea midline. No JVD or lymphadenopathy. CARDIOVASCULAR: Regular rate and rhythm without murmurs, gallops, or rubs. RESPIRATORY: Breath sounds clear and equal bilaterally. No accessory muscle use. GASTROINTESTINAL: Abdomen soft, non-tender, nondistended. Active bowel sounds. MUSCULOSKELETAL: No cyanosis, or edema. BACK: Nontender without obvious deformity. No CVA tenderness. Data Data Last Documented VS Vital Signs Date Time Temp Pulse Resp B/P (MAP) Pulse Ox O2 Delivery O2 Flow Rate FiO2 04/09/17 21:46 98 Nasal Cannula 2.00 04/09/17 21:46 100 20 157/82 (107) Orders Orders Electrocardiogram (04/09/17 21:19) Ckmb (Isoenzyme) Profile (04/09/17 21:19) Complete Blood Count With Diff (04/09/17 21:19) Comprehensive Metabolic Panel (04/09/17 21:19) Magnesium (Mg) (04/09/17 21:19) Prothrombin Time / Inr (Pt) (04/09/17 21:19) Act Partial Throm Time (Ptt) (04/09/17 21:19) Troponin I (04/09/17 21:19) Chest, Single Ap (04/09/17 21:19) Ecg Monitoring (04/09/17 21:19) Bilateral Bp Monitoring (04/09/17 21:19) Iv Access Insert/Monitor (04/09/17 21:19) Oximetry (04/09/17 21:19) Oxygen Administration (04/09/17 21:19) Sodium Chloride 0.9% Flush (Ns Flush) (04/09/17 21:30) Nitroglycerin Sl (Nitrostat Sl) (04/09/17 21:30) Sodium Chlorid 0.9% 500 Ml Inj (Ns 500 M (04/09/17 21:30) Drug Screen, Random Urine (04/09/17 21:19) Alcohol (Ethanol) (04/09/17 21:19) Nitroglycerin 2% Oint (Nitroglycerin 2% (04/09/17 21:45) CKMB (04/09/17 21:28) CKMB% (04/09/17 21:28) Metoprolol Tartrate Inj (Lopressor Inj) (04/09/17 23:00) Admit Order (Ed Use Only) (04/09/17 22:56) Place In Observation (04/09/17 22:56) Activity Bed Rest With Brp (04/09/17 22:56) Vital Signs (Adult) Q4H (04/09/17 22:56) Cardiac Rhythm .As Directed (04/09/17 22:56) Notify Dr: Other .PRN (04/09/17 22:56) Notify Dr. Parameters (04/09/17 22:56) Resp Oxygen Nasal Cannula (04/09/17 ) Ckmb (Isoenzyme) Profile (04/09/17 22:56) Ckmb (Isoenzyme) Profile (04/10/17 01:56) Troponin I (04/09/17 22:56) Troponin I (04/10/17 01:56) Electrocardiogram (04/09/17 22:56) Electrocardiogram (04/10/17 01:56) ^ Obtain (04/09/17 22:56) Sodium Chloride 0.9% Flush (Ns Flush) (04/09/17 23:00) Sodium Chloride 0.9% Flush (Ns Flush) (04/09/17 23:00) Systems Operator / Telemetry [id number].[id number] (04/09/17 22:56) Labs Laboratory Tests Test 04/09/17 21:28 White Blood Count 11.0 TH/MM3 Red Blood Count 4.81 MIL/MM3 Hemoglobin 15.0 GM/DL Hematocrit 43.1 % Mean Corpuscular Volume 89.7 FL Mean Corpuscular Hemoglobin 31.1 PG Mean Corpuscular Hemoglobin Concent 34.7 % Red Cell Distribution Width 12.7 % Platelet Count 337 TH/MM3 Mean Platelet Volume 7.3 FL Neutrophils (%) (Auto) 68.7 % Lymphocytes (%) (Auto) 19.6 % Monocytes (%) (Auto) 9.8 % Eosinophils (%) (Auto) 1.2 % Basophils (%) (Auto) 0.7 % Neutrophils # (Auto) 7.5 TH/MM3 Lymphocytes # (Auto) 2.1 TH/MM3 Monocytes # (Auto) 1.1 TH/MM3 Eosinophils # (Auto) 0.1 TH/MM3 Basophils # (Auto) 0.1 TH/MM3 CBC Comment DIFF FINAL Differential Comment Prothrombin Time 10.1 SEC Prothromb Time International Ratio 1.0 RATIO Activated Partial Thromboplast Time 27.0 SEC Blood Urea Nitrogen 8 MG/DL Creatinine 0.92 MG/DL Random Glucose 136 MG/DL Total Protein 7.6 GM/DL Albumin 3.6 GM/DL Calcium Level 8.9 MG/DL Magnesium Level 1.6 MG/DL Alkaline Phosphatase 89 U/L Aspartate Amino Transf (AST/SGOT) 28 U/L Alanine Aminotransferase (ALT/SGPT) 69 U/L Total Bilirubin 0.3 MG/DL Sodium Level 136 MEQ/L Potassium Level 3.5 MEQ/L Chloride Level 102 MEQ/L Carbon Dioxide Level 26.1 MEQ/L Anion Gap 8 MEQ/L Estimat Glomerular Filtration Rate 90 ML/MIN Total Creatine Kinase 184 U/L Creatine Kinase MB 0.7 NG/ML Troponin I LESS THAN 0.02 NG/ML Ethyl Alcohol Level LESS THAN 3 MG/DL MDM Medical Decision Making Medical Screen Exam Complete: Yes Emergency Medical Condition: Yes Differential Diagnosis Chest pain versus hypertensive urgency versus ACS versus unstable angina versus other Narrative Course 42-year-old male presents to the ED via EMS for evaluation of approximately 8 hour history of intermittent left-sided chest pain that radiates into the arm. Onset at rest. Patient states that he is noted his blood pressures been elevated throughout the course of the day. He endorses intermittent diaphoresis throughout the course of the day. Endorses familial history of [place]. Endorses compliance with his daily amlodipine. Denies illicit drug use, alcohol use, cigarette smoking. Per EMS report the patient received aspirin, single dose of nitroglycerin sublingual en route. Pulse 102, BP 203/102 on presentation. Physical exam reveals an anxious white male in no acute distress. Chest CT AB. Abdomen soft and nontender. No lower extremity edema. IV was established. Patient was administered half liter normal saline and 1 dose of sublingual nitroglycerin. 1 inch Nitropaste was applied. EKG rate 106, sinus tachycardia. IA interval 149, QRS 103, QTC 378 ms. Normal axis. T-wave inversions in V4 V5. Similar to previous EKG in March. Reviewed by Dr. Mackenzie. CXR: No acute disease. No significant change per radiology read. Troponin negative. CBC, CMP, INR unremarkable. Alcohol less than 3. BP 170/86 heart rate 96 on recheck. Patient administered 2.5 mg Lopressor. He' ll be admitted to the chest pain center. He is agreeable to this plan. Please see chest pain center notes for disposition. Francie Juarez Apr 09, 2017 21:35
[2017-04-09] MEDS ORDERED: AMLO5TAB2 PO (21:37)
[2017-04-09 21:39] VITALS: BP 166/97; PULSE 111; RESP 20; O2SAT 98
[2017-04-09] MEDS ORDERED: NITROGLYCERIN 2% OINT 1 GM PACKET TOP ONE (21:45)
[2017-04-09 21:46] VITALS: BP 157/82; PULSE 100; RESP 20; O2SAT 98
--- NOTE | 2017-04-09 21:55 | RADRPT ---
EXAM DATE/TIME: 04/09/2017 21:47 [facility] COMPARISON: CHEST SINGLE AP, February 15, 2017, 16:53. INDICATIONS : Patient complains of chest pain. MEDICAL HISTORY : Hypertension. SURGICAL HISTORY : None. ENCOUNTER: Initial ACUITY: 1 day PAIN SCORE: 3/10 LOCATION: chest FINDINGS: A single view of the chest demonstrates the lungs to be symmetrically aerated without evidence of mas s, infiltrate or effusion. The cardiomediastinal contours are unremarkable. Osseous structures are intact. CONCLUSION: No acute disease. No significant change has occurred. Jamie Landry MD on April 09, 2017 at 21:53 Board Certified Radiologist. This report was verified electronically.
[2017-04-09 22:07] LABS: AUTOMATED NEUTROPHIL # 7.5 TH/MM3 (1.8-7.7); BASOPHIL # 0.1 TH/MM3 (0-0.2); BASOPHIL % 0.7 % (0.0-2.0); EOSINOPHIL # 0.1 TH/MM3 (0-0.4); EOSINOPHIL % 1.2 % (0.0-4.0); HEMATOCRIT 43.1 % (39.0-51.0); LYMPH % 19.6 % (9.0-44.0); LYMPHOCYTE # 2.1 TH/MM3 (1.0-4.8); MEAN CELL VOLUME 89.7 FL (80.0-100.0); MEAN CORPUSCULAR HEMOGLOBIN 31.1 PG (27.0-34.0); MEAN CORPUSCULAR HGB CONC 34.7 % (32.0-36.0); MEAN PLATELET VOLUME 7.3 FL (7.0-11.0); MONO % 9.8 % (0.0-8.0); MONOCYTE # 1.1 TH/MM3 (0-0.9); NEUT % 68.7 % (16.0-70.0); PLATELET COUNT 337 TH/MM3 (150-450); RED BLOOD COUNT 4.81 MIL/MM3 (4.50-5.90); RED CELL DISTRIBUTION WIDTH 12.7 % (11.6-17.2)
[2017-04-09 22:08] LABS: ALT (GPT) 69 U/L (12-78)
[2017-04-09 22:11] LABS: ALBUMIN 3.6 GM/DL (3.4-5.0); AST (GOT) 28 U/L (15-37); BICARBONATE 26.1 MEQ/L (21.0-32.0); BLOOD UREA NITROGEN 8 MG/DL (7-18); CALCIUM 8.9 MG/DL (8.5-10.1); CHLORIDE 102 MEQ/L (98-107); CREATININE 0.92 MG/DL (0.60-1.30); GLOMERULAR FILTRATION RATE 90 ML/MIN (>89); GLUCOSE,RANDOM 136 MG/DL (74-106); MAGNESIUM 1.6 MG/DL (1.5-2.5); SODIUM (NA) 136 MEQ/L (136-145)
[2017-04-09 22:12] LABS: ALKALINE PHOSPHATASE 89 U/L (45-117); TOTAL BILIRUBIN ADULT 0.3 MG/DL (0.2-1.0); TOTAL PROTEIN 7.6 GM/DL (6.4-8.2); TROPONIN I LESS THAN 0.02 NG/ML (0.02-0.05)
[2017-04-09 22:44] LABS: PROTHROMBIN TIME - PATIENT 10.1 SEC (9.8-11.6)
[2017-04-09] MEDS ORDERED: IOHEXOL 350 MG/ML 50 ML BTL (for Cath Lab) OTHER ONE (22:59)
[2017-04-09] MEDS ORDERED: METOPROLOL TARTRATE 5 MG/5 ML VIAL IV PUSH ONE (23:00)
[2017-04-09] MEDS ORDERED: SODIUM CHLORIDE 0.9% FLUSH 10 ML FLUSH IV FLUSH PRN (23:00)
[2017-04-09] MEDS: SODIUM CHLORIDE 0.9% FLUSH 10 ML FLUSH IV FLUSH SCH (23:10)
[2017-04-09 23:11] VITALS: O2SAT 97
[2017-04-09 23:24] VITALS: BP 151/68; PULSE 90; RESP 20; O2SAT 98
[2017-04-10] VITALS (10 sets, daily range): BP systolic 136–173; BP diastolic 88–105; PULSE 77–93; RESP 15–18; TEMP 98–99; O2SAT 94–98
[2017-04-10 00:07] LABS: TROPONIN I LESS THAN 0.02 NG/ML (0.02-0.05)
[2017-04-10 02:52] LABS: TROPONIN I LESS THAN 0.02 NG/ML (0.02-0.05)
--- NOTE | 2017-04-10 07:50 | HHI.HP ---
HPI Primary Care Physician Raymond Whitlock MD Chief Complaint Chest pain History of Present Illness 42 year old male with history of hypertension presents to ER for further evaluation of chest pain. Onset yesterday 1pm. Location left anterior chest. Characterized tightness. Radiation to left arm. Severity moderate. Duration wax/ waned in intensity for "hours." No associated symptoms of nausea, vomiting, dyspnea, or diaphoreses. No known precipitating or relieving factors. Endorses similar pain in the past approx. 1-2 months ago when his blood pressure "was really high." Denies any current chest pain and has remained chest pain free overnight. Ran out of metoprolol approx. 1 month ago. Review of Systems General: No fatigue,weakness, fever, chills, recent illness, or change in appetite. Has been in his general state of health. HEENT: No DUMONT, no vision changes, no nasal congestion or drainage, no dysphasia CV: As stated above. No current CP or pressure. No palpitations, intermittent leg pain, or dizziness RESP: No SOB, cough, wheeze, or recent URI. GI: No nausea, vomiting, bowel changes, diarrhea, constipation, pain, distention , melena, or blood in the stool. No change in appetite, no unintentional weight gain or weight loss : No dysuria, urgency, frequency EXT: No lower leg edema, no paraesthesias MS: No discomfort, recent injury, known trauma, or change in ROM NEURO: No change in memory, dizziness, difficulty with balance, LOC, motor/ sensory deficits PSYCH: No anxiety, depression SKIN: No rashes, no concerning lesions Past Family Social History Allergies: Coded Allergies: No Known Allergies (Unverified Allergy, Unknown, 04/09/17) Past Medical History Hypertension Past Surgical History None Reported Medications Reported Meds & Active Scripts Active Metoprolol Tartrate 25 Mg Tab 25 Mg PO Q12HR Reported Amlodipine (Amlodipine Besylate) 5 Mg Tab 5 Mg PO DAILY Active Ordered Medications Current Medications Medications (Trade) Dose Ordered Sig/Johnna Route Start Time Stop Time Status Last Admin (NS Flush) 2 ml UNSCH PRN IVF 04/09/17 21:30 (NS Flush) 2 ml UNSCH PRN IV FLUSH 04/09/17 23:00 (NS Flush) 2 ml BID IV FLUSH 04/09/17 23:00 04/09/17 23:10 Family History Father age 49 due to [facility] with cardiac stents placed in mid 40s. Social History Known hypertension. No known diabetes, CAD, or hyperlipidemia. Former smoker, quitting 20 years ago. Rare alcohol use. Denies any illegal drug use. 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 Past cardiac testing None Physical Exam Vital Signs Vital Signs Date Time Temp Pulse Resp B/P (MAP) Pulse Ox O2 Delivery O2 Flow Rate FiO2 04/10/17 03:38 98.9 88 16 159/91 (113) 97 04/10/17 00:40 99.0 87 16 162/88 (112) 97 04/09/17 23:43 04/09/17 23:24 90 20 151/68 (95) 98 Nasal Cannula 2.00 04/09/17 23:11 97 Nasal Cannula 2.00 04/09/17 21:46 98 Nasal Cannula 2.00 04/09/17 21:46 100 20 157/82 (107) 98 Nasal Cannula 2.00 04/09/17 21:39 111 20 166/97 (120) 98 Nasal Cannula 2.00 04/09/17 21:27 101 18 98 Nasal Cannula 2.00 04/09/17 21:26 101 18 169/89 (115) 99 Nasal Cannula 2.00 04/09/17 21:22 102 20 203/102 (135) 97 Physical Exam GENERAL: Alert WN, WD, NAD, pleasant, male HEAD: NC, AT EYES: Sclera clear, conjunctiva without injection ENT: Mucous membranes pink and moist NECK: Supple, no masses, trachea midline CV: RRR, without murmur, rub, gallop, no JVD, S1-S2 no S3-S4. Chest wall nontender with palpation. RESP: Clear lungs throughout bilateral, no crackles, wheeze, rhonchi, symmetrical chest rise, nonlabored, able to speak in full sentences ABD: Soft, NT, ND, no masses, positive bowel tones EXT: Pulses +24, no dependent edema MS: Normal tone 4 extremities, no obvious deformities, full range of motion NEURO: CN II through CN XII grossly intact, motor strength 5/5, gait WNL PSYCH: A+O 3, pleasant affect, appropriate speech, mood, insight and judgment SKIN: Normal turgor, normal texture, no lesions, no rashes, brisk cap refill, even hair distribution, multiple tattoos Laboratory Laboratory Tests Test 04/09/17 21:28 04/09/17 23:00 04/10/17 02:10 White Blood Count 11.0 Red Blood Count 4.81 Hemoglobin 15.0 Hematocrit 43.1 Mean Corpuscular Volume 89.7 Mean Corpuscular Hemoglobin 31.1 Mean Corpuscular Hemoglobin Concent 34.7 Red Cell Distribution Width 12.7 Platelet Count 337 Mean Platelet Volume 7.3 Neutrophils (%) (Auto) 68.7 Lymphocytes (%) (Auto) 19.6 Monocytes (%) (Auto) 9.8 Eosinophils (%) (Auto) 1.2 Basophils (%) (Auto) 0.7 Neutrophils # (Auto) 7.5 Lymphocytes # (Auto) 2.1 Monocytes # (Auto) 1.1 Eosinophils # (Auto) 0.1 Basophils # (Auto) 0.1 CBC Comment DIFF FINAL Differential Comment Prothrombin Time 10.1 Prothromb Time International Ratio 1.0 Activated Partial Thromboplast Time 27.0 Blood Urea Nitrogen 8 Creatinine 0.92 Random Glucose 136 Total Protein 7.6 Albumin 3.6 Calcium Level 8.9 Magnesium Level 1.6 Alkaline Phosphatase 89 Aspartate Amino Transf (AST/SGOT) 28 Alanine Aminotransferase (ALT/SGPT) 69 Total Bilirubin 0.3 Sodium Level 136 Potassium Level 3.5 Chloride Level 102 Carbon Dioxide Level 26.1 Anion Gap 8 Estimat Glomerular Filtration Rate 90 Total Creatine Kinase 184 180 166 Creatine Kinase MB 0.7 0.6 Troponin I LESS THAN 0.02 LESS THAN 0.02 LESS THAN 0.02 Ethyl Alcohol Level LESS THAN 3 Result Diagram: 04/09/17212704/09/172127 Imaging Last 48 hours Impressions Chest X-Ray 04/09/172118 Signed Impressions: Service Date/Time: Sunday, April 09, 2017 21:47 - CONCLUSION: No acute disease. No significant change has occurred. Jamie Landry MD Course EKG NSR, left axis, nonspecific st segment changes, diffuse T wave inversions Caprini VTE Risk Assessment Caprini VTE Risk Assessment: No/Low Risk (score <= 1) Caprini Risk Assessment Model Point Value = 1 Point Value = 2 Point Value = 3 Point Value = 5 Age 41-60 Minor surgery BMI > 25 kg/m2 Swollen legs Varicose veins or History of unexplained or recurrent spontaneous Oral contraceptives or hormone replacement Sepsis (< 1 month) Serious lung disease, including pneumonia (< 1 month) Abnormal pulmonary function Acute myocardial infarction Congestive heart failure (< 1 month) History of inflammatory bowel disease Medical patient at bed rest Age 61-74 Arthroscopic surgery Major open surgery (> 45 min) Laparoscopic surgery (> 45 min) Malignancy Confined to bed (> 72 hours) Immobilizing plaster cast Central venous access Age >= 75 History of VTE Family history of VTE Factor V Leiden Prothrombin [id number] Lupus anticoagulant Anticardiolipin antibodies Elevated serum homocysteine Heparin-induced thrombocytopenia Other congenital or acquired thrombophilia Stroke (< 1 month) Elective arthroplasty Hip, pelvis, or leg fracture Acute spinal cord injury (< 1 month) Prophylaxis Regimen Total Risk Factor Score Risk Level Prophylaxis Regimen 0-1 Low Early ambulation 2 Moderate Order ONE of the following: *Sequential Compression Device (SCD) *Heparin 5000 units SQ BID 3-4 Higher Order ONE of the following medications: *Heparin 5000 units SQ TID *Enoxaparin/Lovenox 40 mg SQ daily (WT < 150 kg, CrCl > 30 mL/min) *Enoxaparin/Lovenox 30 mg SQ daily (WT < 150 kg, CrCl > 10-29 mL/min) *Enoxaparin/Lovenox 30 mg SQ BID (WT < 150 kg, CrCl > 30 mL/min) AND/OR *Sequential Compression Device (SCD) 5 or more Highest Order ONE of the following medications: *Heparin 5000 units SQ TID (Preferred with Epidurals) *Enoxaparin/Lovenox 40 mg SQ daily (WT < 150 kg, CrCl > 30 mL/min) *Enoxaparin/Lovenox 30 mg SQ daily (WT < 150 kg, CrCl > 10-29 mL/min) *Enoxaparin/Lovenox 30 mg SQ BID (WT < 150 kg, CrCl > 30 mL/min) AND *Sequential Compression Device (SCD) Assessment and Plan Assessment and Plan #1 Chest pain-admitted to chest pain center.Seen and evaluated by Dr. Nicho Kumar. Proceed with nuclear treadmill study this morning. If unremarkable, plans to discharge home with follow up with PCP. #2 Hypertension-continue amlodipine, initiating considered increasing dose to 10mg daily upon discharge, however after further discussion with patient he as been out of his metoprolol for at least one month. 1200 Lexiscan conclusions small mild severity low anterior wall perfusion abnormality with mild redistribution. Dr. Kumar notified. Consult transportation specialist chicken sexer. [id number] Eastman, discussed lexiscan results. Okay for fed patient at this time. Discussed with patient plan of care. Rukhsana Chapa Apr 10, 2017 07:50
[2017-04-10] MEDS: SODIUM CHLORIDE 0.9% FLUSH 10 ML FLUSH IV FLUSH SCH ×2 (08:00→21:41)
[2017-04-10] MEDS: amLODIPine BESYLATE 5 MG TAB PO SCH (11:22)
--- NOTE | 2017-04-10 11:45 | RADRPT ---
EXAM DATE/TIME: 04/10/2017 09:21 [facility] COMPARISON: No previous studies available for comparison. INDICATIONS : Left chest pain. Angina DOSE: 26.5 mCi Tc99m Myoview at stress 8.8 mCi Tc99m Myoview at rest REST HEART RATE: 114 BPM TARGET HEART RATE: 151 BPM MAX HEART RATE: 154 BPM REST BLOOD PRESSURE: 170/98 mmHg MAX BLOOD PRESSURE: 198/104 mmHg EJECTION FRACTION: 48% MEDICAL HISTORY : Hypertension. Diabetes mellitus type 2. SURGICAL HISTORY : None. ENCOUNTER: Initial ACUITY: 1 day PAIN SCALE: 4/10 LOCATION: Left chest TECHNIQUE: The patient underwent upright treadmill exercise in the chest pain center. Continuous ECG tracing wa s monitored during stress. Gated SPECT imaging was performed after stress, and conventional SPECT im aging was performed at rest. The examination was performed on a SPECT/CT scanner, both attenuation-c orrected and non-corrected datasets were reviewed. FINDINGS: DISTRIBUTION: The maximum perfused segment at stress is in the lateral wall. PERFUSION STUDY: There is mildly diminished relative perfusion to the low anterior wall with suggestion of slight redi stribution. GATED STUDY: Borderline EF. There is intact wall motion and thickening without hypokinetic or dyskinetic segments. CONCLUSION: Small mild severity low anterior wall perfusion abnormality with mild redistribution. RISK CATEGORY: Intermediate (1-3% Annual Mortality Rate) Nathan Pagan MD on April 10, 2017 at 11:39 Board Certified Radiologist. This report was verified electronically.
[2017-04-10] MEDS: METOPROLOL TARTRATE 25 MG TAB PO SCH ×2 (12:59→21:41)
[2017-04-10] MEDS ORDERED: METO25TA3 PO (13:57)
[2017-04-10] MEDS ORDERED: AMLO5TAB2 PO (13:57)
[2017-04-11] VITALS: PULSE 78
[2017-04-11 03:25] VITALS: BP 133/86; PULSE 81; RESP 16; TEMP 97.6; O2SAT 98
[2017-04-11 04:23] VITALS: PULSE 85
[2017-04-11 07:40] VITALS: PULSE 81
--- NOTE | 2017-04-11 08:02 | PD.CONS ---
HPI Consult Requested By Primary Care Physician Raymond Whitlock MD History of Present Illness 42 year old male with a past medical history of HTN, who presented with chest pain. The patient had sudden onset of left-sided chest discomfort that lasted for 7-8 hours. He feels like this was brought on by his high blood pressure and anxiety. He states his systolic blood pressure was 200 at the time. He reports compliance with his medications. He does have a family history of early AR in his father at 49. Quit smoking in 1994. No chest pain currently. He was admitted to the chest pain center where he had unremarkable serial cardiac enzymes. EKG showed nonspecific T-wave changes in the lateral leads similar to previous EKG from last 02/15/17. He underwent Lexiscan which showed small mild severity below anterior wall perfusion abnormality with mild redistribution. Plan is for cardiac catheterization today and patient is agreeable. (Reid Torres) Review of Systems Negative except as stated in the history of present illness (Reid Torres) Past Family Social History Allergies: Coded Allergies: No Known Allergies (Unverified Allergy, Unknown, 04/09/17) Past Medical History Hypertension Reported Medications Reported Meds & Active Scripts Active Amlodipine (Amlodipine Besylate) 5 Mg Tab 5 Mg PO DAILY Metoprolol Tartrate 25 Mg Tab 25 Mg PO Q12HR Active Ordered Medications Current Medications Medications (Trade) Dose Ordered Sig/Johnna Route Start Time Stop Time Status Last Admin (NS Flush) 2 ml UNSCH PRN IVF 04/09/17 21:30 (NS Flush) 2 ml UNSCH PRN IV FLUSH 04/09/17 23:00 (NS Flush) 2 ml BID IV FLUSH 04/09/17 23:00 04/10/17 21:41 (Norvasc) 5 mg DAILY PO 04/10/17 09:00 04/10/17 11:22 (Lopressor) 25 mg Q12HR PO 04/10/17 12:15 04/10/17 21:41 Family History Grandmother had multiple heart bypass surgeries Father had a sten and t at age 49 Social History Alcohol Use: Yes (3 OR 4 TIMES A WEEK) Tobacco Use: No, quit 1994 Substance Use: No (Reid Torres) Physical Exam Vital Signs Vital Signs Date Time Temp Pulse Resp B/P (MAP) Pulse Ox O2 Delivery O2 Flow Rate FiO2 04/11/17 04:23 85 04/11/17 03:25 97.6 81 16 133/86 (102) 98 04/11/17 00:00 78 04/10/17 23:08 99.0 84 15 143/92 (109) 98 04/10/17 20:09 98.2 83 16 136/88 (104) 96 04/10/17 20:00 77 04/10/17 17:04 98.2 86 18 151/105 (120) 94 04/10/17 16:05 87 04/10/17 13:20 80 04/10/17 12:50 98.0 93 18 173/98 (123) 96 Physical Exam GENERAL: Well-developed well-nourished. In no acute distress. NECK: No carotid bruits. No JVD. CARDIOVASCULAR: Regular rate and rhythm. No murmur appreciated. RESPIRATORY: No accessory muscle use. Clear to auscultation. Breath sounds equal bilaterally. MUSCULOSKELETAL: No clubbing or cyanosis. No edema. NEUROLOGICAL: Awake and alert. Normal speech. (Reid Torres) Result Diagram: 04/09/17212704/09/172127 Imaging Last Impressions Myocardial Perfusion Scan Nuc Med 04/10/17 0000 Signed Impressions: Service Date/Time: April 09:21 - CONCLUSION: Small mild severity low anterior wall perfusion abnormality with mild redistribution. RISK CATEGORY: Intermediate (1-3%% Annual Mortality Rate) Nathan Pagan MD Chest X-Ray 04/09/172118 Signed Impressions: Service Date/Time: Sunday, April 09, 2017 21:47 - CONCLUSION: No acute disease. No significant change has occurred. Jamie Landry MD (Reid Torres) Assessment and Plan Assessment and Plan 42-year-old male who presented with chest pain, admitted to the chest pain center with positive nuclear stress test and admitted for cardiology evaluation Chest pain/positive stress test: Proceed with cardiac catheterization today, nothing by mouth. Hypertension: Controlled currently on home amlodipine and metoprolol. (eRid Torres) Assessment and Plan [facility] today ([place],Shamar Reid Mendez Apr 11, 2017 08:02 Shamar Eastman MD Apr 11, 2017 10:40
[2017-04-11 08:29] VITALS: BP 139/91; PULSE 85; RESP 20; TEMP 97.9; O2SAT 96
[2017-04-11] MEDS: METOPROLOL TARTRATE 25 MG TAB PO SCH (08:54)
[2017-04-11] MEDS: SODIUM CHLORIDE 0.9% FLUSH 10 ML FLUSH IV FLUSH SCH (08:55)
[2017-04-11] MEDS: amLODIPine BESYLATE 5 MG TAB PO SCH (08:55)
--- NOTE | 2017-04-11 10:06 | MH ---
cc: RAYMOND YOUNGBLOOD MD DATE OF ADMISSION 04/09/2017 CHIEF COMPLAINT Chest pain. HISTORY OF PRESENT ILLNESS Lul Looney is a 42-year-old male who I see in my office. He has a recurrent history of hypertension and has been pretty compliant, however I have not seen him recently. He has been good about checking his blood pressures at home and states that he had been continuing his antihypertensives at home. He came into the emergency room with chest pain and was admitted to the chest pain unit. He was seen by Dr. Kumar and underwent treadmill study and was continued on his Amlodipine. He had a Lexiscan that showed a perfusion abnormality and he was subsequently admitted further for catheterization. He has been n.p.o. I was thus called for medical management and the patient is sleeping this morning and has no new complaints. PAST MEDICAL HISTORY 1. Asthma 2. Anxiety 3. Depression 4. Hypertension 5. Hyperlipidemia 6. Diabetes SOCIAL HISTORY Social drinker. No tobacco or substance use. MEDICATIONS His home medications are: Amlodipine 5 mg daily or is also listed as metoprolol. REVIEW OF SYSTEMS Recurrent chest pain, anxiety and weakness. Negative 14-point review of systems otherwise. IMAGING STUDIES Chest x-ray shows no acute disease. Myocardial perfusion scan shows small mild severity low anterior wall perfusion abnormality with mild redistribution. LABORATORY DATA CBC 04/09/2017 normal, glucose 136. Troponins have been normal. INR 1.0. FAMILY HISTORY Noncontributory. He does not report anything about his mother or father. PHYSICAL EXAM VITALS: Temperature 97.9, pulse 85, respirations 20, blood pressure 139/91, pulse ox 96% on room air. GENERAL: In general, he is sleeping, however, he arouses to voice. He has no complaints right now. HEENT: Oropharynx is clear. NECK: Carotids are clear. Neck is supple. No lymphadenopathy. CHEST: Clear. No wheezes, rales, crackles or coughing. CARDIOVASCULAR: Regular rate and rhythm. No murmurs, rubs, clicks or gallops. ABDOMEN: Soft and nontender. No rebound or guarding. EXTREMITIES: No edema. SKIN: Skin is clear. ASSESSMENT/PLAN 1. Chest pain: Cardiology to perform cardiac catheterization today. 2. Continue n.p.o. 3. Continue Norvasc 5 daily and metoprolol 25 b.i.d. 4. Continue telemetry 5. Diabetes, continue to monitor bedside glucoses. We will add an A1c. 6. Asthma 7. Anxiety DISPOSITION Discharge home per the cloth dyeing range tender. Thank you for the consultation and please have him see me in my office next week as soon as possible, call is my office. Raymond Youngblood MD RP/NAMITA /9:24 AM /9:36 AM
[2017-04-11] MEDS ORDERED: MIDAZOLAM HCL 2 MG/2 ML VIAL ONE (12:57)
[2017-04-11] MEDS ORDERED: HEPARIN-NS/PF FLUSH BAG 2,000 ML IV FLUSH ONE (12:57)
[2017-04-11] MEDS ORDERED: HEPARIN SODIUM - IV 10,000 UNITS/10 ML VIAL ONE (12:58)
[2017-04-11] MEDS ORDERED: NITROGLYCERIN INJ 5 ML ONE (12:58)
[2017-04-11] MEDS ORDERED: oxyCODONE/ACETAMINOPHEN 5 MG/325 MG TAB PO PRN ×2 (14:00)
[2017-04-11] MEDS ORDERED: MISC INFORMATION XX ONE (14:00)
--- NOTE | 2017-04-11 14:42 | CATHPROC ---
Zlio HIS Report Study Information Study Number Scheduled Start Study Start [id number] 04/11/2017 Apr 11 2017 1:00PM Study Type Left/Possible PCI Referring Institution Admit Source Facility Department 1 Emergency department [facility] Physician and Clinical Staff Initial Shamar Berkowitz Pillowcase Cutter German Palacios,RT(R) Recorder Kassandra Jolly,RT(R) Scrub Kassandra Bennett RN Procedures Performed Procedure Location (Site) Vessel Name Coronary Angiograms LCA Left Coronary Coronary Angiograms RCA Right Coronary L Heart Cath Wire insertion Radial (right) Radial Art. Equipment Time Field Case Manager Description Size Mfg Part Number Used/Scraped TRANSDUCER, TRUWAVE [id number] 13:06 LIM LEMA * Used W/STOCKCOCK *[id number] *[id number] [id number] *[id number] 13:06 [employer] INDUSTRIES PACK, CCL CUSTOM * Used *[id number] 13:06 kaleo SUPPORT, ARTERIAL ADULT 86229 *[id number] Used [id number] 13:06 [employer] PACER PEN, SKIN DUAL W/ RULER * Used *[id number] 13:15 [employer] JR 5.0 DXTERITY CATHETER fr 5 [id number] Used BAND, RADIAL COMPRESSION TR [id number] 13:36 Quietly MEDICAL 29CM Used LARGE 29 *[id number] SHEATH, FR6 RADIAL PRELUDE 13:06 Quietly MEDICAL FR 6 [id number] Used EASE 11CM [id number] 13:06 Quietly MEDICAL WIRE, EXCHANGE 260CM 3MMJ 260CM Used *[id number] 13:06 [employer] OMNIPAQUE, 350 MG, 150ML 150ML [id number] Used [id number] 13:06 [employer] BLANKET,WARM AIR CCL * Used *[id number] Equipment Model, Serial, Lot Number and Expiration Data Description Model Number Serial Number Lot Number Expiration Date JR 5.0 DXTERITY CATHETER [id number] 09-06-2019 History: Current Medications Medication Dosage/Unit Route Frequency Last Date/Time Taken NORVASC LOPRESSOR History: Allergies Allergy Reaction No Known Allergies History: Risk Factors Family History of Hypertension Dyslipidemia Previous MT Previous Heart Failure Premature CAD Yes No No No No Prior Valve Prior PCI Prior CABG Surgery No No No Cerebrovascular Peripheral Artery Chronic Lung On Dialysis Diabetes Disease Disease Disease No No No No No History: Symptoms/Diagnosis Selection Items Chest pain History: Stress Tests Stress or Imaging Studies Performed Yes Standard Exercise Stress Test No Stress Echo No Stress Test SPECT Stress Test SPECT Result Stress Test SPECT Ischemia Risk/Extent Yes Positive Low Stress Test CMR No Cardiac CTA Coronary Calcium Score No No History: Other Current Smoker Method Quit Yes Cigarettes 20 Years Ago Labs Hgb (g/dl) Hct (%) RBC (MIL/MM3) WBC (l/cumm) Platelets (thousands) 11.60-17.00 35.00-51.00 4.00-5.90 4.00-11.00 150.00-450.00 15.0 43.1 4.8 11 337 Glucose (mg/dl) BUN (mg/dl) Creatinine (mg/dl) BUN:Creatinine (1:x) 74.00-106.00 7.00-18.00 0.50-1.30 10.00-20.00 136 8 0.9 8.9 Na (meq/l) K (meq/l) Cl (meq/l) CO2 (mmol/L) Ca (mg/dl) 136.00-145.00 3.50-5.10 98.00-107.00 21.00-32.00 8.50-10.10 136 3.5 102 26.1 8.9 PT (sec) PTT (sec) INR (PTT:PT) 9.80-11.60 24.30-30.10 0.90-1.10 10.1 27 1 Troponin I (ng/ml) CPK (u/l) CPK-MB (ng/ML) 0.02-0.05 26.00-308.00 0.50-3.60 0.02 166 0.6 Medication Medication Total Dose (Bolus/Oral) Medication Total Dosage/Unit 1% XYLOCAINE 20 mL FENTANYL 50 mcg HEPARIN 3000 units RADIAL COCKTAIL 5 mL (Bolus) VERSED 2 mg Medications (Bolus/Oral) Medication Time Given Dosage/Unit Administered By Reason VERSED 04/11/2017 1:19:36 PM 2 mg Kassandra Bennett 2 mg VERSED given in lab by Kassandra Bennett, RN in Left Antecubital via Peripheral IV. FENTANYL 04/11/2017 1:20:50 PM 50 mcg Kassandra Bennett 50 mcg FENTANYL given in lab by Kassandra Bennett, RN via Peripheral IV. 1% XYLOCAINE 04/11/2017 1:22:57 PM 20 mL Shamar Eastman 20 mL 1% XYLOCAINE given in lab by Shamar Eastman in Right Radial via Subcutaneous. RADIAL COCKTAIL 04/11/2017 1:26:04 PM 5 mL (Bolus) Shamar Eastman 5 mL (Bolus) RADIAL COCKTAIL given in lab by Shamar Eastman via Radial. Using [Solution Name]. NITRO HEPARIN 04/11/2017 1:26:14 PM 3000 units Kassandra Bennett 3000 units HEPARIN given in lab by Kassandra Bennett, RN via Peripheral IV. Medication (Drip) Medication Time Given Dosage/Unit Concentration/Unit Diluent (ml) Solution IV Solutions 04/11/2017 1:13:28 PM 0 mL (IV) 500 NaCl .9 Patient arrived on IV Solutions in Left Antecubital via Peripheral IV. Pump/Drip Flow = 20 ml/hr usin g NaCl .9. Initial Case Assessment Cardiovascular HR Rhythm 91 REG Edema Present Skin color Skin None Normal Warm Circulatory - Right Pulses Dorsalis Pedis Femoral 2 2 Scale (0,1,2,3,4,d) Circulatory - Left Pulses Dorsalis Pedis Femoral 2 2 Scale (0,1,2,3,4,d) Circulatory - Lower Extremities Color Lower Right Color Lower Left Normal Normal Neurological State Oriented to time-place- Alert Moves all extremities person Respiration - General Respiration Rate SpO2 (%) (B/min) 10 98 Final Case Assessment Cardiovascular HR Rhythm NIBP Chest Pain 82 REG 152/88 0 Edema Present Skin color Skin None Normal Warm Circulatory - Right Pulses Dorsalis Pedis Femoral 2 2 Scale (0,1,2,3,4,d) Circulatory - Left Pulses Dorsalis Pedis Femoral 2 2 Scale (0,1,2,3,4,d) Circulatory - Lower Extremities Color Lower Right Color Lower Left Normal Normal Neurological State Oriented to time-place- Alert Moves all extremities person Respiration - General Respiration Rate SpO2 (%) (B/min) 14 98 Chronological Log Time Study Chronological Log 12:55:48 Patient arrived via Bed. 13:00:13 Patient Name, D.O.B, / Armband Verified By R.N. 13:00:14 Consent signed by the physician and the patient and verified by the [facility] staff. 13:00:15 Pre-op and post- op instructions given; patient acknowledges understanding of instructions. 13:00:21 Allens test performed on the right radial and ulnar artery. 13:03:31 Reference ECG taken Vitals capture started with the following parameters, Patient=Adult, Interval=5 min, Initial Pr djxhvb=410 mmHg, 13:03:54 Deflation Rate=5 mmHg, Cuff placed on Left Arm 13:05:20 HR=74 bpm, LQJY=218/102 mmhg, SpO2=97.0 %, Resp=9 B/min, Pain=0, Alfredo=10, Armenta=2 13:09:42 HR=83 bpm, COQL=784/112 mmhg, SpO2=96.0 %, Resp=12 B/min, Pain=0, Alfredo=10, Armenta=2 13:12:14 Patient has been NPO for More than 6Hrs. 13:12:15 Skin Breakdown-NONE 13:12:27 A # 20 IV was noted in the Antecubital (left). Grade = 0 13:13:28 Patient arrived on IV Solutions in Left Antecubital via Peripheral IV. Pump/Drip Flow = 20 ml/hr using NaCl .9. 13:13:46 Pressure channel 1 zeroed. Assessment: Initial Case, HR=91 BPM, Rhythm=REG, Edema=None, Color=Normal, Skin = Warm Right Pulses: Redd Ped=2, Femoral=2 Left Pulses: Redd Ped=2, Femoral=2 13:14:50 Lower Right Extremities: Color=Normal Lower Left Extremities: Color=Normal Neurological: State=Alert, Ox3, MELENDEZ Respiration: Resp=10 B/min, SpO2=98 % 13:15:25 Bilateral groins prepped with 2% chlorhexidine, and draped after a 3 minute waiting time. 13:15:29 paged 13:15:32 HR=87 bpm, MCLL=534/94 mmhg, SpO2=96.0 %, Resp=14 B/min, Pain=0, Alfredo=10, Armenta=2 13:16:53 MD responded 13:19:14 MD arrived. 13:19:36 2 mg VERSED given in lab by Kassandra Bennett, RN in Left Antecubital via Peripheral IV. 13:19:40 HR=85 bpm, LWXC=972/108 mmhg, SpO2=95.0 %, Resp=25 B/min, Pain=0, Alfredo=10, Armenta=2 13:20:50 50 mcg FENTANYL given in lab by Kassandra Bennett, RN via Peripheral IV. Time Out. Correct patient, correct procedure, correct physician, power injector not loaded with contrast with surgical 13:22:28 team present. Time Out Concurred by MD and individual staff in procedure. 13:22:50 Case Start 13:22:57 20 mL 1% XYLOCAINE given in lab by Shamar Eastman in Right Radial via Subcutaneous. 13:24:32 Access site was Radial Artery.RT 13:24:35 HR=83 bpm, KPKY=582/92 mmhg, SpO2=97 %, Resp=13 B/min, Pain=0, Alfredo=10, Armenta=2 13:24:45 A wire was inserted via Radial (right). A SHEATH, FR6 RADIAL PRELUDE EASE 11CM FR 6 was advanced into the Radial (right) using the Perc utaneous 13:25:18 technique. 13:26:04 5 mL (Bolus) RADIAL COCKTAIL given in lab by Shamar Eastman via Radial. Using [Solution Nam e]. NITRO 13:26:14 3000 units HEPARIN given in lab by Kassandra Bennett, RN via Peripheral IV. A JR 5.0 DXTERITY CATHETER fr 5 was advanced over a wire. OMNIPAQUE, 350 MG, 150ML 150ML was us ed for 13:27:04 injections. Recorded Pressure: LV, HR=89, Condition=Condition 1 13:27:40 (Left Ventricle) LV 115/0/4 Recorded Pressure: LV, Ao, HR=87, Condition=Condition 1 13:27:46 (Left Ventricle) LV 113/2/7, (Aorta) Ao 109/78/93 13:28:16 The RCA was injected and visualized at various angles. OMNIPAQUE, 350 MG, 150ML 150ML used . After removing the current catheter a JL 3.5 INFINITI CATHETER FR 5 was advanced over a WIRE, E XCHANGE 260CM 13:28:31 3MMJ 260CM. 13:29:36 HR=89 bpm, NINX=214/91 mmhg, SpO2=95 %, Resp=15 B/min, Pain=0, Alfredo=10, Armenta=2 After removing the current catheter a AL 1 INFINITI CATHETER FR 5 was advanced over a WIRE, EXC HANGE 260CM 13:31:56 3MMJ 260CM. 13:34:26 The LCA was injected and visualized at various angles. OMNIPAQUE, 350 MG, 150ML 150ML used . 13:34:37 HR=86 bpm, CWQB=824/88 mmhg, SpO2=95.0 %, Resp=16 B/min, Pain=0, Alfredo=10, Armenta=2 13:35:37 Catheter was removed 13:35:40 Case End Assessment: Final Case, HR=82 BPM, Rhythm=REG, DSJJ=436/88 mmhg, Chest Pain=0, Edema=None, Col or=Normal, Skin = Warm Right Pulses: Redd Ped=2, Femoral=2 Left Pulses: Redd Ped=2, Femoral=2 13:36:05 Lower Right Extremities: Color=Normal Lower Left Extremities: Color=Normal Neurological: State=Alert, Ox3, MELENDEZ Respiration: Resp=14 B/min, SpO2=98 % 13:36:30 Catheter(s) removed without difficulty Radial Compression Device Used. 15 mLs of air placed in BAND, RADIAL COMPRESSION TR LARGE 29 2 9CM. Affected 13:36:32 hand 98 % O2 saturation. 13:36:45 Sterile dressing applied to site 13:36:46 No case complications noted. 13:36:48 Cine recording checked. 13:36:50 Bedside Report will be given. 13:36:53 Contrast Scanned 13:36:55 Verbal Stimulation=2 Physical Stimulation=2 Airway=2 Respiration=2 TOTAL=8. (0=absent, 1=l imited, 2=present) 13:37:04 A Left Heart Cath was performed. 13:37:10 Clinical correlaton risk stratification. 13:39:40 HR=81 bpm, HKLH=613/84 mmhg, SpO2=96.0 %, Resp=19 B/min, Pain=0, Alfredo=10, Armenta=2 End Study - Contrast Media Used In Study Contrast Total Opened (mL) Total Used (mL) Total Wasted (mL) Omnipaque 40 40 0 End Study - Maximum Contrast Load Max Contrast Load (mL) 516.7 End Study - Radiation Exposure Fluoro Time (minutes) 3.9 End Study - Sheaths Sheaths Pulled By Sheath Hold Time (min) German Palacios End Study - Patient Disposition Complications Transferred To No [facility] Holding
[2017-04-11] MEDS ORDERED: BACITRACIN OINT 0.9 GM PKT TOP ONE (15:00)
--- NOTE | 2017-04-11 16:23 | EKG ---
Date Performed: 04/10/2017 Time Performed: 02:16:30 PTAGE: 42 years EKG: Sinus rhythm NONSPECIFIC T-WAVE ABNORMALITY BORDERLINE ECG PREVIOUS TRACING : 04/09/2017 23.11 Since previous tracing, no significant change noted DOCTOR: Nicho Kumar Interpretating Date/Time 04/11/2017 16:21:19
--- NOTE | 2017-04-11 16:23 | EKG ---
Date Performed: 04/09/2017 Time Performed: 23:11:58 PTAGE: 42 years EKG: Sinus rhythm NONSPECIFIC T-WAVE ABNORMALITY BORDERLINE ECG PREVIOUS TRACING : 04/09/2017 21.19 Since previous tracing, no significant change noted DOCTOR: Nicho Kumar Interpretating Date/Time 04/11/2017 16:21:41
--- NOTE | 2017-04-11 16:24 | EKG ---
Date Performed: 04/09/2017 Time Performed: 21:19:30 PTAGE: 42 years EKG: SINUS TACHYCARDIA ST DEVIATION AND MODERATE T-WAVE ABNORMALITY, CONSIDER LATERAL ISCHEMIA A BNORMAL ECG PREVIOUS TRACING : 02/15/2017 23.54 Since previous tracing, no significant change noted DOCTOR: Nicho Kumar Interpretating Date/Time 04/11/2017 16:23:25
--- NOTE | 2017-04-11 16:32 | TR ---
Date Performed: 04/10/2017 Time Performed: 09:59:31 DOCTOR: Nicho Kumar DRUG LIST: CLINICAL HISTORY: REASON FOR TEST: REASON FOR ENDING: OBSERVATION: CONCLUSION: Hayder protocol completed. Stopped sec to reaching target heart rate and leg fatigue. Maximum ZW=803 Target HR Achieved=87.0% Maximum MN=902/100 Total Exercise Time=4:41. No reprod chest pain. Freq PVC. Baseline diffuse T wave inversions. No changes during peak, however during recovery T wave inversions not seen. Hypertensive bp response. Fair exercise tolerance. Recovery quick and unr emarkable. Nuclear images pending. COMMENTS: ST depression noted consistent with ischemia. Nuclear imaging pending.
[2017-04-11] MEDS ORDERED: SODIUM CHLORIDE 0.9% FLUSH 10 ML FLUSH IV FLUSH SCH (21:00)
--- NOTE | 2017-04-14 07:39 | MA ---
cc: LUIS ARMANDO GORMAN DATE: 04/11/2017 INDICATION Abnormal stress test. PROCEDURE PERFORMED 1. Fluoroscopy with interpretation. 2. Coronary angiography 3. Left heart catheterization. METHOD The risks, benefits and alternatives were discussed with the patient. The patient understood and consented to the procedure. The patient was brought to the cardiac catheterization laboratory this a.m. and placed on the operating room table. The right wrist was prepped and draped in sterile fashion. Right wrist was anesthetized 2% lidocaine. Right radial artery was cannulated and a 6 singaporean, 7 cm sheath was placed without difficulty. Left heart catheterization; intraventricular hemodynamics measured 120 over 10 mmHg. CORONARY ANGIOGRAPHY 1. Left main coronary but angiographically normal to the left anterior descending coronary is angiographically normal. 2. Left circumflex gives rise to an obtuse marginal branch angiographically normal. 3. Right coronary is dominant vessel giving rise to a posterior descending coronary. Right coronary angiographically normal. CONCLUSION 1. Angiographically normal coronary arteries. 2. Normal left-sided filling pressures. PLAN The patient monitored closely for any procedural complications can be discharged and follow up with primary care physician. MD LELE Gunn/stanley /1:51 PM /7:30 AM
== END 2017-04-11 17:07 | disposition home or self-care (01) ==
LOC: NEPE 21:11 → NEDA 22:58 → NEPGCP 23:35 → HCIS 04-11 13:01
PROVIDERS: ADMIT Family Medicine; ATTEND Family Medicine
DX: R07.89 Other chest pain (principal); I10 Essential (primary) hypertension; I20.9 Angina pectoris, unspecified; R94.39 Abnormal result of other cardiovascular function study; F41.9 Anxiety disorder, unspecified; R94.31 Abnormal electrocardiogram [ECG] [EKG]; R00.0 Tachycardia, unspecified; R61 Generalized hyperhidrosis; J45.909 Unspecified asthma, uncomplicated; E78.00 Pure hypercholesterolemia, unspecified; E11.9 Type 2 diabetes mellitus without complications; F32.9 Major depressive disorder, single episode, unspecified; Z87.891 Personal history of nicotine dependence; Z79.899 Other long term (current) drug therapy; Z82.49 Family history of ischemic heart disease and other diseases of the circulatory system
CPT/HCPCS: 71045; 78452; 80053; 80307; 82550; 82552; 83735; 84484; 85025; 85610; 85730; 93005; 93017; 93458; 99152; 99285; A9502; C1769; C1893; G0378; J1644; J2250; J3010; J7040; Q9967